=== PATIENT | male | born 1940 | race Caucasian/White ===

== ENCOUNTER → 2016-09-20 | Day surgery (SDC) | payer OTHER ==
[~2016-09-20] MED LIST: AMIT25TA20 PO; ASPI81TA82 PO; ATEN-100 PO; BACITRACIN TOP OINT 15 GM TUBE ONE; BUPIVACAINE/EPINEPHRINE 0.5% PF 10 ML VIAL ONE; DIGO0.25 PO; GLUC1000 PO; INSU100V2 SQ; INSU100V3 SQ; LACTATED RINGER'S 1000 ML INJ 1,000 ML ONE; LISI-589 PO; MIDAZOLAM HCL 2 MG/2 ML VIAL ONE; POTA-243 PO; PROPOFOL 200 MG/20 ML AMP IV ONE; SIMV20 PO; TAB-TAB PO; ceFAZolin 2 GM PREMIX 50 ML ONE
--- NOTE | 2016-09-20 18:03 | TN ---
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 PROCEDURE His excision of in transit metastasis left upper extremity with intermediate closure wound 5 cm x 2.5 cm ANESTHESIA TIVA and local anesthetic ATTENDING SURGEON: Pasquale. NUTRITION WORKER: Staff BLOOD LOSS Less than 10 cc COMPLICATIONS None FINDINGS Pigmented nodule in the subcutaneous tissue grossly completely excised of all margins. INDICATIONS FOR PROCEDURE The patient is a 76-year-old male with a history of left upper extremity melanoma status post wide excision of skin graft by Dr. Danie Diaz. The patient was followed up by his husker operator and was noted to have a pigmented nodular type lesion in the left upper extremity near his previous excision. The patient was referred to myself and found to be approximately 6-7 cm away from the patient's original, primary melanoma. The patient and biopsy is consistent with in transit disease. A PET scan was negative for any metastatic disease. I discussed with the patient about the potential treatment options which include wide excision. Primarily as well as other adjuvant therapy, as well as regional therapy such as a limb infusion. He was elected to undergo excision of this lesion at this time followed by close followup. PROCEDURE: Informed consent was obtained, the patient was taken to the operating room and placed in the supine position, placed under TIVA sedation. The patient's left upper extremity is prepped and draped in sterile fashion. Time-out was performed. Local anesthetic 0.25% Marcaine was instilled in the area of the planned excision in the left forearm round, marked nodule. We excised this with a 5 cm x 2.5 cm 15 blade scalpel at the skin. The bovie electrocautery this used to dissect the subcutaneous tissue and resect this off of the deep fascia of the extensor compartment. This was marked with stitch proximal sent for permanent processing. Grossly all normal tissue 3.5 degrees around the nodule. We then got excellent hemostasis with Bovie electrocautery. We placed deep dermal 3-0 Vicryl sutures followed for Monocryl and Steri-Strips. Placed a pressure dressing an a Max wrap as the patient being perioperative from anticoagulation. The patient at this discontinued from the anesthesia and taken to PACU in stable condition. The patient tolerated procedure well. No apparent complications. All counts were correct. I was present and scrubbed throughout the entire procedure. MD TRICE Flaherty/hung /2:54 PM /5:58 PM
== END | disposition home or self-care (01) ==
LOC: ESDC 12:28
PROVIDERS: ATTEND Surgery
DX: C43.62 Malignant melanoma of left upper limb, including shoulder (principal); E11.9 Type 2 diabetes mellitus without complications; Z79.4 Long term (current) use of insulin
CPT/HCPCS: 00400; 11606; 12032; 82948; 88305; 88341; 88342; J0690; J2250; J3010; J7120

== ENCOUNTER 2016-10-01 12:13 | Emergency (ER) | payer OTHER ==
[~2016-10-01] VITALS: Ht 188 cm; Wt 100.0 kg
[~2016-10-01 12:13] MED LIST changes: -BACITRACIN TOP OINT 15 GM TUBE ONE; -BUPIVACAINE/EPINEPHRINE 0.5% PF 10 ML VIAL ONE; -LACTATED RINGER'S 1000 ML INJ 1,000 ML ONE; -MIDAZOLAM HCL 2 MG/2 ML VIAL ONE; -PROPOFOL 200 MG/20 ML AMP IV ONE; -ceFAZolin 2 GM PREMIX 50 ML ONE
[2016-10-01 12:14] VITALS: BP 125/60; PULSE 80; RESP 16; TEMP 97.9; O2SAT 98
[2016-10-01] MEDS ORDERED: ZOCO20TA PO (13:04)
[2016-10-01] MEDS ORDERED: GABA300C5 PO (13:04)
[2016-10-01] MEDS ORDERED: CYMB30CA PO (13:04)
[2016-10-01] MEDS ORDERED: MULTTAB67 PO (13:04)
[2016-10-01] MEDS ORDERED: XARE15TA PO (13:04)
[2016-10-01] MEDS ORDERED: INSU100V3 SQ (13:04)
[2016-10-01] MEDS ORDERED: AMIT25TA9 PO (13:04)
[2016-10-01] MEDS ORDERED: ATEN1TAB73 PO (13:04)
[2016-10-01] MEDS ORDERED: METF1000 PO (13:04)
--- NOTE | 2016-10-01 14:03 | PD ---
HPI Chief Complaint: ENT Complaint Time Seen by Provider: 13:22 Travel History International Travel<30 days: No Contact w/Intl Traveler<30days: No Traveled to known affect area: No History of Present Illness HPI Patient is a 76-year-old male currently on Xarrelto, presents to ER with c/o of nose bleed. Patient reports that he picked his left nares last night and began to have a nose bleed. Reports that he has placed multiple cotton balls into his left nares without any resolution of bleeding. Reports that he did try some applying pressure to his left nares with no relief of symptoms. Patient reports that his nose bled all night, reports that he decided to finally come to the emergency for evaluation and his nose stopped bleeding. Patient reports that bleeding stopped around noontime today. Patient denies any lightheadedness or dizziness at this time. Patient with no chest pain or shortness of breath PFSH Past Medical History Atrial Fibrillation: Yes Heart Rhythm Problems: Yes (SVT/ATRIAL FIB X 1 EPISODE) Cardiovascular Problems: Yes (MVR ) High Cholesterol: Yes Diabetes: Yes Patient Takes Glucophage: No Diminished Hearing: No Hypertension: Yes Kidney Stones: Yes Neurologic: Yes (DIABETIC NEUROPATHY) Tetanus Vaccination: Never Vaccinated Influenza Vaccination: No Past Surgical History Cardiac Surgery: Yes (MVR ) Cholecystectomy: Yes (1981) Eye Surgery: Yes (BILATERAL LASIK) Neurologic Surgery: Yes (LAMINECTOMY X2) Other Surgery: Yes (LEFT THUMB/INFECTION/HAND SURGERY) Social History Alcohol Use: No Tobacco Use: No Substance Use: No Allergies-Medications (Allergen,Severity, Reaction): Coded Allergies: Tetanus Toxoid (Verified Allergy, Severe, SEVERE SWELLING, TOLD NEVER TO HAVE INJECTION AGAIN, 10/01/16) Uncoded Allergies: rubber (Allergy, Severe, unknown, 05/29/12) Reported Meds & Prescriptions Reported Meds & Active Scripts Active Reported Xarelto (Rivaroxaban) 15 Mg Tab 15 Mg PO DAILY Cymbalta DR (Duloxetine HCl) 30 Mg Capdr 30 Mg PO DAILY Gabapentin 300 Mg Cap 300 Mg PO TID Zocor (Simvastatin) 20 Mg Tab 20 Mg PO HS Multiple Vitamin 1 Tab 1 Tab PO DAILY Metformin (Metformin HCl) 1,000 Mg Tab 1,000 Mg PO BID With meals Humulin N Inj (Insulin Human NPH) 1,000 Unit/10 Ml Vial SQ BID PER SLIDING SCALE Tenormin (Atenolol) 25 Mg Tab 25 Mg PO DAILY Amitriptyline (Amitriptyline HCl) 25 Mg Tab 25 Mg PO HS Review of Systems General / Constitutional: No: Fever Eyes: No: Visual changes HENT: Positive: Nosebleed, No: Headaches Cardiovascular: No: Chest Pain or Discomfort Respiratory: No: Shortness of Breath Gastrointestinal: No: Abdominal Pain Genitourinary: No: Dysuria Musculoskeletal: No: Pain Skin: No Rash Neurologic: No: Weakness Psychiatric: No: Depression Endocrine: No: Polydipsia Hematologic/Lymphatic: No: Easy Bruising Physical Exam Narrative GENERAL: NAD, Nontoxic SKIN: Focused skin assessment warm/dry. HEAD: Atraumatic. Normocephalic. EYES: Pupils equal and round. No scleral icterus. No injection or drainage. ENT: No active nasal bleeding or discharge. Mucous membranes pink and moist. Patient with dried blood to left nares with no active bleeding CARDIOVASCULAR: Regular rate and rhythm. No murmur appreciated. RESPIRATORY: No accessory muscle use. Clear to auscultation. Breath sounds equal bilaterally. GASTROINTESTINAL: Abdomen soft, non-tender, nondistended. Hepatic and splenic margins not palpable. MUSCULOSKELETAL: No obvious deformities. No clubbing. No cyanosis. No edema. NEUROLOGICAL: Awake and alert. No obvious cranial nerve deficits. Motor grossly within normal limits. Normal speech. Data Data Last Documented VS Vital Signs Date Time Temp Pulse Resp B/P Pulse Ox O2 Delivery O2 Flow Rate FiO2 10/01/16 12:14 97.9 80 16 125/60 98 Orders Complete Blood Count With Diff (10/01/16 13:40) Prothrombin Time / Inr (Pt) (10/01/16 13:40) Act Partial Throm Time (Ptt) (10/01/16 13:40) Labs Laboratory Tests Test 10/01/16 14:00 White Blood Count 6.5 TH/MM3 Red Blood Count 3.40 MIL/MM3 Hemoglobin 10.5 GM/DL Hematocrit 31.4 % Mean Corpuscular Volume 92.3 FL Mean Corpuscular Hemoglobin 31.0 PG Mean Corpuscular Hemoglobin 33.6 % Concent Red Cell Distribution Width 13.7 % Platelet Count 147 TH/MM3 Mean Platelet Volume 7.5 FL Neutrophils (%) (Auto) 67.6 % Lymphocytes (%) (Auto) 24.2 % Monocytes (%) (Auto) 5.6 % Eosinophils (%) (Auto) 2.2 % Basophils (%) (Auto) 0.4 % Neutrophils # (Auto) 4.4 TH/MM3 Lymphocytes # (Auto) 1.6 TH/MM3 Monocytes # (Auto) 0.4 TH/MM3 Eosinophils # (Auto) 0.1 TH/MM3 Basophils # (Auto) 0.0 TH/MM3 CBC Comment DIFF FINAL Differential Comment Prothrombin Time 11.0 SEC Prothromb Time International 1.0 RATIO Ratio Activated Partial 26.1 SEC Thromboplast Time MDM Medical Decision Making Medical Screen Exam Complete: Yes Emergency Medical Condition: Yes Interpretation(s) Vital Signs Date Time Temp Pulse Resp B/P Pulse Ox O2 Delivery O2 Flow Rate FiO2 10/01/16 12:14 97.9 80 16 125/60 98 Differential Diagnosis Differential includes epistasis, hypercoagulable state, anemia Narrative Course 76-year-old male who presents to emergency with complaints of nosebleed. Patient reports that nosebleed began after he picked his left nares yesterday, reports that his nose stopped bleeding today while in the emergency room. I did review with patient how to treat epistaxis at home as he was not applying direct pressure. Patient with blood clot to left nares, will check cbc and coags. CBC & BMP Diagram 10/01/16 14:00 Hemoglobin 10.5, INR 1.0, patient with cessation of nasal bleeding since noon today. No bleeding in ER from nares. Patient has been educated on how to apply pressure to nose if he has recurrent epistasis. Understands that he should return to the emergency room immediately should he have recurrent epistasis which persist. Diagnosis Primary Impression: Epistaxis Patient Instructions: General Instructions Additional Instructions: Please provide patient with a copy of his lab work at discharge Return to ER as needed or if symptoms return and persist Please follow up with your primary care doctor Disposition: 01 DISCHARGE HOME Condition: Stable MetcalfAnmu DO Oct 01, 2016 14:03
[2016-10-01 14:19] LABS: AUTOMATED NEUTROPHIL # 4.4 TH/MM3 (1.8-7.7); BASOPHIL % 0.4 % (0.0-2.0); EOSINOPHIL # 0.1 TH/MM3 (0-0.4); EOSINOPHIL % 2.2 % (0.0-4.0); HEMATOCRIT 31.4 % (39.0-51.0); HEMO FLAGS DIFF FINAL; LYMPH % 24.2 % (9.0-44.0); LYMPHOCYTE # 1.6 TH/MM3 (1.0-4.8); MEAN CELL VOLUME 92.3 FL (80.0-100.0); MEAN CORPUSCULAR HGB CONC 33.6 % (32.0-36.0); MONO % 5.6 % (0.0-8.0); NEUT % 67.6 % (16.0-70.0); PLATELET COUNT 147 TH/MM3 (150-450); RED CELL DISTRIBUTION WIDTH 13.7 % (11.6-17.2); WHITE BLOOD COUNT 6.5 TH/MM3 (4.0-11.0)
[2016-10-01 14:29] LABS: APTT (PATIENT) 26.1 SEC (24.3-30.1)
== END 2016-10-01 15:33 | disposition home or self-care (01) ==
LOC: NEPD 12:13
DX: R04.0 Epistaxis (principal); I48.91 Unspecified atrial fibrillation; E78.00 Pure hypercholesterolemia, unspecified; I10 Essential (primary) hypertension; E11.40 Type 2 diabetes mellitus with diabetic neuropathy, unspecified; Z87.442 Personal history of urinary calculi; Z79.01 Long term (current) use of anticoagulants
CPT/HCPCS: 85025; 85610; 85730; 99283

== ENCOUNTER 2017-01-20 12:49 | Inpatient (IN) | payer OTHER, MEDICARE ==
[2017-01-20] VITALS (10 sets, daily range): BP systolic 103–138; BP diastolic 55–76; PULSE 71–90; RESP 18–19; TEMP 97.2–99.1; O2SAT 95–100
[~2017-01-20] VITALS: Ht 188 cm; Wt 104.6 kg
[~2017-01-20 12:49] MED LIST changes: -AMIT25TA20 PO; +AMIT25TA9 PO; -ASPI81TA82 PO; -ATEN-100 PO; +ATEN1TAB73 PO; +CYMB30CA PO; -DIGO0.25 PO; +GABA300C5 PO; -GLUC1000 PO; -INSU100V2 SQ; -LISI-589 PO; +METF1000 PO; +MULTTAB67 PO; -POTA-243 PO; -SIMV20 PO; -TAB-TAB PO; +XARE15TA PO; +ZOCO20TA PO
[2017-01-20] MEDS ORDERED: SODIUM CHLORIDE 0.9% FLUSH 10 ML FLUSH IVF PRN (13:15)
[2017-01-20] MEDS ORDERED: HUMULIN R SQ (13:19)
[2017-01-20] MEDS ORDERED: FERR325C PO (13:19)
[2017-01-20] MEDS ORDERED: METO25TA3 PO (13:19)
[2017-01-20] MEDS ORDERED: ASCO100037 (13:19)
--- NOTE | 2017-01-20 13:19 | PD ---
HPI Chief Complaint: Cardiac Complaint Time Seen by Provider: 12:56 Travel History International Travel<30 days: No Contact w/Intl Traveler<30days: No History of Present Illness HPI 76-year-old male with PMH of blindness, DM T2, HTN, HLD, A. fib, MRSA, MVR with porcine valve, CA, on Xarelto presents to the ED for evaluation of 1 week history of worsening dyspnea on exertion, palpitations, dizziness. The patient denies headache, vision changes, chest pain, abdominal pain, nausea, vomiting, melena, hematochezia, dysuria, hematuria. He saw his primary care, Dr. Murphy , on Monday. He was told on Monday that he is anemic and ordered to begin taking iron supplements. He has been doing this with no improvement of symptoms. He states that he had panendoscopy "too many years ago" that was normal. He is followed by Dr. Matthews, cardiology. PFSH Past Medical History Atrial Fibrillation: Yes Heart Rhythm Problems: Yes (SVT/ATRIAL FIB X 1 EPISODE) Cardiovascular Problems: Yes (MVR ) High Cholesterol: Yes Diabetes: Yes Diminished Hearing: No Hypertension: Yes Kidney Stones: Yes Neurologic: Yes (DIABETIC NEUROPATHY) Past Surgical History Cardiac Surgery: Yes (MVR ) Cholecystectomy: Yes (1981) Eye Surgery: Yes (BILATERAL LASIK) Neurologic Surgery: Yes (LAMINECTOMY X2) Other Surgery: Yes (LEFT THUMB/INFECTION/HAND SURGERY) Social History Alcohol Use: No Tobacco Use: No Substance Use: No Allergies-Medications (Allergen,Severity, Reaction): Coded Allergies: tetanus toxoid, adsorbed (Unverified Allergy, Severe, SEVERE SWELLING, TOLD NEVER TO HAVE INJECTION AGAIN, 11/08/16) Uncoded Allergies: rubber (Allergy, Severe, unknown, 05/29/12) Reported Meds & Prescriptions Reported Meds & Active Scripts Active Reported Vitamin C (Ascorbic Acid) 1,000 Mg Tab.chew Iron (Ferrous Sulfate) 325 Mg Cap 325 Mg PO TIDPC [Humulin R ] SQ DIRECTED Metoprolol Tartrate 25 Mg Tab 25 Mg PO DAILY Xarelto (Rivaroxaban) 15 Mg Tab 15 Mg PO DAILY Cymbalta DR (Duloxetine HCl) 30 Mg Capdr 30 Mg PO DAILY Gabapentin 300 Mg Cap 300 Mg PO TID Zocor (Simvastatin) 20 Mg Tab 20 Mg PO HS Multiple Vitamin 1 Tab 1 Tab PO DAILY Humulin N Inj (Insulin Human NPH) 1,000 Unit/10 Ml Vial SQ BID PER SLIDING SCALE Amitriptyline (Amitriptyline HCl) 25 Mg Tab 25 Mg PO HS Review of Systems Except as stated in HPI: all other systems reviewed are Neg Physical Exam Narrative GENERAL: Well-nourished, well-developed pleasant white male in no acute distress. SKIN: Focused skin assessment warm/dry. Pale, good turgor HEAD: Normocephalic. EYES: No scleral icterus. No injection or drainage. NECK: Supple, trachea midline. No JVD or lymphadenopathy. CARDIOVASCULAR: Regular rate and rhythm without murmurs, gallops, or rubs. 2+ DP and radial pulses bilaterally RESPIRATORY: Breath sounds clear and equal bilaterally. No accessory muscle use. GASTROINTESTINAL: Abdomen soft, non-tender, nondistended. Active bowel sounds. RECTAL EXAM: No masses or tenderness, stool is brown. Guaiac positive. MUSCULOSKELETAL: No cyanosis, or edema. Ankle braces bilaterally. BACK: Nontender without obvious deformity. No CVA tenderness. Data Data Last Documented VS Vital Signs Date Time Temp Pulse Resp B/P (MAP) Pulse Ox O2 Delivery O2 Flow Rate FiO2 01/20/17 13:11 (83) Room Air 01/20/17 13:01 80 17 98 01/20/17 12:50 99.1 Orders Orders Complete Blood Count With Diff (01/20/17 13:08) Comprehensive Metabolic Panel (01/20/17 13:08) B-Type Natriuretic Peptide (01/20/17 13:08) Act Partial Throm Time (Ptt) (01/20/17 13:08) Prothrombin Time / Inr (Pt) (01/20/17 13:08) Magnesium (Mg) (01/20/17 13:08) Ckmb (Isoenzyme) Profile (01/20/17 13:08) Troponin I (01/20/17 13:08) Urinalysis - C+S If Indicated (01/20/17 13:08) Iv Access Insert/Monitor (01/20/17 13:08) Electrocardiogram (01/20/17 13:08) Ecg Monitoring (01/20/17 13:08) Oximetry (01/20/17 13:08) Chest, Single Ap (01/20/17 13:08) Sodium Chloride 0.9% Flush (Ns Flush) (01/20/17 13:15) Red Blood Cells (Rbc) (01/20/17 13:40) Blood Product Administration (01/20/17 13:40) Sodium Chlor 0.9% 250 Ml Inj (Ns 250 Ml (01/20/17 13:45) Type And Screen (01/20/17 13:40) Consult Gastroenterology (01/20/17 ) Pantoprazole Inj (Protonix Inj) (01/20/17 14:30) Admit Order (Ed Use Only) (01/20/17 14:29) Labs Laboratory Tests Test 01/20/17 13:15 01/20/17 13:30 White Blood Count 6.1 TH/MM3 Red Blood Count 1.92 MIL/MM3 Hemoglobin 5.9 GM/DL Hematocrit 18.1 % Mean Corpuscular Volume 94.4 FL Mean Corpuscular Hemoglobin 30.8 PG Mean Corpuscular Hemoglobin Concent 32.6 % Red Cell Distribution Width 16.1 % Platelet Count 185 TH/MM3 Mean Platelet Volume 7.7 FL Neutrophils (%) (Auto) 69.6 % Lymphocytes (%) (Auto) 19.7 % Monocytes (%) (Auto) 7.5 % Eosinophils (%) (Auto) 2.6 % Basophils (%) (Auto) 0.6 % Neutrophils # (Auto) 4.2 TH/MM3 Lymphocytes # (Auto) 1.2 TH/MM3 Monocytes # (Auto) 0.5 TH/MM3 Eosinophils # (Auto) 0.2 TH/MM3 Basophils # (Auto) 0.0 TH/MM3 CBC Comment DIFF FINAL Differential Comment Prothrombin Time 12.3 SEC Prothromb Time International Ratio 1.1 RATIO Activated Partial Thromboplast Time 33.2 SEC Blood Urea Nitrogen 19 MG/DL Creatinine 1.33 MG/DL Random Glucose 290 MG/DL Total Protein 7.1 GM/DL Albumin 3.3 GM/DL Calcium Level 7.8 MG/DL Magnesium Level 1.7 MG/DL Alkaline Phosphatase 82 U/L Aspartate Amino Transf (AST/SGOT) 15 U/L Alanine Aminotransferase (ALT/SGPT) 16 U/L Total Bilirubin 0.5 MG/DL Sodium Level 135 MEQ/L Potassium Level 4.3 MEQ/L Chloride Level 106 MEQ/L Carbon Dioxide Level 21.5 MEQ/L Anion Gap 8 MEQ/L Estimat Glomerular Filtration Rate 52 ML/MIN Total Creatine Kinase 79 U/L Troponin I LESS THAN 0.02 NG/ML B-Type Natriuretic Peptide 414 PG/ML Urine Color YELLOW Urine Turbidity CLEAR Urine pH 5.5 Urine Specific [place] 1.015 Urine Protein TRACE mg/dL Urine Glucose (UA) 300 mg/dL Urine Ketones NEG mg/dL Urine Occult Blood NEG Urine Nitrite NEG Urine Bilirubin NEG Urine Urobilinogen LESS THAN 2.0 MG/DL Urine Leukocyte Esterase NEG Urine RBC 1 /hpf Urine WBC LESS THAN 1 /hpf Urine Hyaline Casts 10 /lpf Urine Mucus FEW /lpf Microscopic Urinalysis Comment CULT NOT INDICATED MDM Medical Decision Making Medical Screen Exam Complete: Yes Emergency Medical Condition: Yes Differential Diagnosis CHF versus ACS versus anemia versus metabolic arrangement versus GI bleed versus other Narrative Course 76-year-old male with PMH of blindness, DM T2, HTN, HLD, A. fib, MRSA, MVR with porcine valve, [place], on Xarelto presents to the ED for evaluation of 1 week history of worsening dyspnea on exertion, palpitations, dizziness. He was seen by his PCP 4 days ago and told yesterday that he is anemic and ordered to begin taking iron supplements. He's been doing this with no improvement of symptoms. He states that he had panendoscopy many years ago that was normal. He is followed by Dr. Matthews, cardiology. Vitals reviewed. The patient is pale appearing and guaiac positive on rectal exam but exam otherwise unremarkable. IV was established. EKG: rate 81, sinus rhythm. MN interval 132, QRS 92, QTC 419 ms. Borderline LAD. Incomplete RBBB, no ST changes. Reviewed by Dr. Gomez. CXR: No acute cardio pulmonary disease per radiology read. Cardiac enzymes negative 1. Hemoglobin 5.9. Hematocrit 18.1. INR 1.1. BUN 19, creatinine 1.33. Glucose 290. BNP 414. No culture indicated of the UA. 2 units PRBC ordered pending type and cross. The patient is anemic, symptomatic , GI bleed. He'll be admitted to the medicine service with GI consult. Family is agreeable to this plan. GI consult placed. I spoke with Dr. Liang who agrees to The patient to the medicine service. Please see medicine is for disposition. [facility] Point of Care Internal Pos. & Neg. Controls: Passed Fecal Specimen Occult Blood: Positive Vanesa Carr Jan 20, 2017 13:18
[2017-01-20 13:31] LABS: AUTOMATED NEUTROPHIL # 4.2 TH/MM3 (1.8-7.7); BASOPHIL % 0.6 % (0.0-2.0); EOSINOPHIL # 0.2 TH/MM3 (0-0.4); EOSINOPHIL % 2.6 % (0.0-4.0); LYMPH % 19.7 % (9.0-44.0); LYMPHOCYTE # 1.2 TH/MM3 (1.0-4.8); MEAN CELL VOLUME 94.4 FL (80.0-100.0); MEAN CORPUSCULAR HEMOGLOBIN 30.8 PG (27.0-34.0); MEAN CORPUSCULAR HGB CONC 32.6 % (32.0-36.0); MEAN PLATELET VOLUME 7.7 FL (7.0-11.0); MONO % 7.5 % (0.0-8.0); MONOCYTE # 0.5 TH/MM3 (0-0.9); NEUT % 69.6 % (16.0-70.0); PLATELET COUNT 185 TH/MM3 (150-450); RED BLOOD COUNT 1.92 MIL/MM3 (4.50-5.90); RED CELL DISTRIBUTION WIDTH 16.1 % (11.6-17.2); WHITE BLOOD COUNT 6.1 TH/MM3 (4.0-11.0)
[2017-01-20 13:37] LABS: HEMATOCRIT 18.1 % (39.0-51.0); HEMOGLOBIN 5.9 GM/DL (13.0-17.0)
[2017-01-20 13:38] LABS: INTERNATIONAL NORMALIZED RATIO 1.1 RATIO; PROTHROMBIN TIME - PATIENT 12.3 SEC (9.8-11.6)
[2017-01-20] MEDS ORDERED: SODIUM CHLOR 0.9% 250 ML INJ 250 ML IV ONE (13:45)
[2017-01-20 13:51] LABS: ALBUMIN 3.3 GM/DL (3.4-5.0); AST (GOT) 15 U/L (15-37); BICARBONATE 21.5 MEQ/L (21.0-32.0); BLOOD UREA NITROGEN 19 MG/DL (7-18); CALCIUM 7.8 MG/DL (8.5-10.1); CHLORIDE 106 MEQ/L (98-107); CREATININE 1.33 MG/DL (0.60-1.30); GLOMERULAR FILTRATION RATE 52 ML/MIN (>89); GLUCOSE,RANDOM 290 MG/DL (74-106); MAGNESIUM 1.7 MG/DL (1.5-2.5); SODIUM (NA) 135 MEQ/L (136-145)
[2017-01-20 13:52] LABS: BILIRUBIN, URINE NEG (NEG); BLOOD, URINE NEG (NEG); GLUCOSE,URINE 300 mg/dL (NEG); HYALINE CAST, URINE 10 /lpf (RARE); KETONE, URINE NEG (NEG); MUCUS URINE FEW /lpf (OCC); NITRITE,URINE NEG (NEG); PH, URINE 5.5 (5.0-8.5); URINE COLOR YELLOW (YELLW/STRAW); URINE LEUKOCYTE ESTERASE NEG (NEG)
[2017-01-20 13:57] LABS: ALKALINE PHOSPHATASE 82 U/L (45-117); ALT (GPT) 16 U/L (12-78); TOTAL BILIRUBIN ADULT 0.5 MG/DL (0.2-1.0); TOTAL PROTEIN 7.1 GM/DL (6.4-8.2); TROPONIN I LESS THAN 0.02 NG/ML (0.02-0.05)
--- NOTE | 2017-01-20 14:04 | RADRPT ---
EXAM DATE/TIME: 01/20/2017 13:54 [facility] COMPARISON: CHEST SINGLE AP, March 18, 2015, 18:28. INDICATIONS : Chest pain and short of breath. MEDICAL HISTORY : Hypertension. hx of MRSA, carotid stenosis, Diabetes II SURGICAL HISTORY : Mitral valve replaced ENCOUNTER: Initial ACUITY: 1 week PAIN SCORE: Non-responsive. LOCATION: Bilateral chest FINDINGS: Median sternotomy wires. Lungs are clear. Cardiome saw contours are within normal limits. Bony thorax is intact. CONCLUSION: 1. No acute cardiopulmonary disease. Ted Clemens MD on January 20, 2017 at 14:01 Board Certified Radiologist. This report was verified electronically.
[2017-01-20] MEDS ORDERED: PANTOPRAZOLE SODIUM 40 MG VIAL IV PUSH ONE (14:30)
[2017-01-20] MEDS ORDERED: PANTOPRAZOLE INJ 80 MG in SODIUM CHLORIDE 0.9% INJ 100 ML IV SCH (14:39)
[2017-01-20] MEDS ORDERED: GLUCAGON 1 MG/ML VIAL OTHER PRN (14:45)
[2017-01-20] MEDS ORDERED: DEXTROSE 50% IN WATER 50 ML VIAL(D50) IV PUSH PRN (14:45)
[2017-01-20] MEDS ORDERED: SODIUM CHLOR 0.9% 1000 ML INJ 1,000 ML IV SCH (14:47)
[2017-01-20] MEDS ORDERED: LACTULOSE SYRUP 20 GM/30 ML CUP PO PRN (15:00)
[2017-01-20] MEDS ORDERED: oxyCODONE/ACETAMINOPHEN 5 MG/325 MG TAB PO PRN (15:00)
[2017-01-20] MEDS ORDERED: BISACODYL 10 MG SUPP RECTAL PRN (15:00)
[2017-01-20] MEDS ORDERED: SENNOSIDES 8.6 MG TAB PO PRN (15:00)
[2017-01-20] MEDS ORDERED: diphenhydrAMINE HCL 25 MG CAP PO PRN (15:00)
[2017-01-20] MEDS ORDERED: ACETAMINOPHEN 325 MG TAB PO PRN ×3 (15:00)
[2017-01-20] MEDS ORDERED: NALOXONE HCL 0.4 MG/ML AMP IV PUSH PRN (15:00)
[2017-01-20] MEDS ORDERED: ONDANSETRON HCL 4 MG/2 ML VIAL IV PUSH PRN (15:00)
[2017-01-20] MEDS ORDERED: PROCHLORPERAZINE 25 MG SUPP RECTAL PRN (15:00)
[2017-01-20] MEDS ORDERED: SODIUM CHLORIDE 0.9% FLUSH 10 ML FLUSH IV FLUSH PRN ×2 (15:00)
[2017-01-20] MEDS ORDERED: MORPHINE SULFATE 4 MG/ML INJ IV PUSH PRN ×2 (15:00)
[2017-01-20] MEDS ORDERED: oxyCODONE/ACETAMINOPHEN 10 MG/325 MG TAB PO PRN (15:00)
[2017-01-20] MEDS ORDERED: FUROSEMIDE 20 MG/2 ML VIAL IV PUSH ONE (15:00)
[2017-01-20] MEDS ORDERED: MAGNESIUM HYDROXIDE SUSP 30 ML CUP PO PRN (15:00)
--- NOTE | 2017-01-20 15:14 | HHI.HP ---
[facility] Service [facility] Primary Care Physician Non-Staff Admission Diagnosis symptomatic anemia, GI bleed Diagnoses: (1) Symptomatic anemia Diagnosis: Principal (2) Diabetes mellitus type 2 in obese Diagnosis: Secondary (3) Hypertension Diagnosis: Secondary (4) Hyperlipidemia Diagnosis: Secondary (5) Atrial fibrillation Diagnosis: Secondary (6) MRSA (methicillin resistant Staphylococcus aureus) Diagnosis: Secondary (7) S/P MVR (mitral valve replacement) Diagnosis: Secondary (8) Chronic anticoagulation Diagnosis: Principal (9) History of MN (myocardial infarction) Diagnosis: Secondary (10) Gastrointestinal bleeding, upper Diagnosis: Principal Travel History International Travel<30 Days: No Contact w/Intl Traveler <30 Da: No Traveled to Known Affected Are: No History of Present Illness 76-year-old male with PMH of blindness, DM T2, HTN, HLD, A. fib, MRSA, MVR with porcine valve, MN, on Xarelto presents to the ED for evaluation of 1 week history of worsening dyspnea on exertion, palpitations, dizziness. The patient denies headache, vision changes, chest pain, abdominal pain, nausea, vomiting, melena, hematochezia, dysuria, hematuria. He saw his primary care, Dr. Murphy , on Monday. He was told on Monday that he is anemic and ordered to begin taking iron supplements. He has been doing this with no improvement of symptoms. He states that he had panendoscopy "too many years ago" that was normal. He is followed by Dr. Matthews, cardiology. Patient states his hemoglobin was approximately 9 earlier this week it is now 5.9 will be admitted and transfused and gastroenterology will be consult will place on Protonix twice a day as well as Sandostatin Review of Systems Constitutional: COMPLAINS OF: Fatigue, DENIES: Diaphoretic episodes, Fever, Weight gain, Weight loss, Chills, Dizziness, Change in appetite Endocrine: DENIES: Heat/cold intolerance, Polydipsia, Polyuria, Polyphagia Eyes: COMPLAINS OF: Vision loss, DENIES: Blurred vision, Diplopia, Eye inflammation, Eye pain Ears, nose, mouth, throat: DENIES: Tinnitus, Hearing loss, Vertigo, Nasal discharge Respiratory: DENIES: Apneas, Cough, Snoring, Wheezing Cardiovascular: DENIES: Chest pain, Palpitations, Syncope, Dyspnea on Exertion , PND Gastrointestinal: COMPLAINS OF: Abdominal pain, Black stools (heme positive stools), Bloody stools Musculoskeletal: DENIES: Joint pain, Muscle aches, Stiffness, Joint Swelling Integumentary: DENIES: Abnormal pigmentation, Nail changes, Pruritus Hematologic/lymphatic: DENIES: Bruising, Lymphadenopathy Immunologic/allergic: DENIES: Eczema, Urticaria Neurologic: COMPLAINS OF: Abnormal gait, Poor Balance, DENIES: Headache, Localized weakness, Paresthesias, Seizures, Speech Problems, Tremor Psychiatric: DENIES: Anxiety, Confusion, Mood changes, Depression, Hallucinations Past Family Social History Past Medical History Blindness Diabetes mellitus2 Hypertension Hyperlipidemia Atrial fibrillation MRSA by history Mitral valve replacement with porcine valve History of myocardial infarction and chronic Xarelto History of SVT atrial fibrillation History of kidney stones Diabetic neuropathy Past Surgical History History of mitral valve replacement with porcine valve Cholecystectomy Bilateral eye Lasix surgery History laminectomies 2 History of left thumb infection hand surgery Reported Medications Reported Meds & Active Scripts Active Reported Vitamin C (Ascorbic Acid) 1,000 Mg Tab.chew Iron (Ferrous Sulfate) 325 Mg Cap 325 Mg PO TIDPC [Humulin R ] SQ DIRECTED Metoprolol Tartrate 25 Mg Tab 25 Mg PO DAILY Xarelto (Rivaroxaban) 15 Mg Tab 15 Mg PO DAILY Cymbalta DR (Duloxetine HCl) 30 Mg Capdr 30 Mg PO DAILY Gabapentin 300 Mg Cap 300 Mg PO TID Zocor (Simvastatin) 20 Mg Tab 20 Mg PO HS Multiple Vitamin 1 Tab 1 Tab PO DAILY Humulin N Inj (Insulin Human NPH) 1,000 Unit/10 Ml Vial SQ BID PER SLIDING SCALE Amitriptyline (Amitriptyline HCl) 25 Mg Tab 25 Mg PO HS Allergies: Coded Allergies: tetanus toxoid, adsorbed (Unverified Allergy, Severe, SEVERE SWELLING, TOLD NEVER TO HAVE INJECTION AGAIN, 11/08/16) Uncoded Allergies: rubber (Allergy, Severe, unknown, 05/29/12) Active Ordered Medications Current Medications Sodium Chloride (NS Flush) 2 ml UNSCH PRN IVF FLUSH AFTER USING IV ACCESS; Start 01/20/17 at 13:15 Sodium Chloride 250 ml @ 15 mls/hr ONCE ONCE IV ; Start 01/20/17 at 13:45; Stop 01/21/17 at 06:24 Pantoprazole Sodium (Protonix Inj) 40 mg ONCE ONCE IV PUSH ; Start 01/20/17 at 14:30; Stop 01/20/17 at 14:31; Status DC Pantoprazole Sodium 80 mg/ Sodium Chloride 100 ml @ 10 mls/hr Q10H IV ; Start 01/20/17 at 14:39 Dextrose (D50w (Vial) Inj) 50 ml UNSCH PRN IV PUSH HYPOGLYCEMIA-SEE COMMENTS; Start 01/20/17 at 14:45; Status UNV Glucagon (Glucagon Inj) 1 mg UNSCH PRN OTHER HYPOGLYCEMIA-SEE COMMENTS; Start 01/20/17 at 14:45; Status UNV Insulin Aspart (NovoLOG SUPPLEMENTAL SCALE) 1 ACHS SLIDING SCALE SQ ; Start at 17:00; Stop 01/20/17 at 17:00; Status DC Amitriptyline HCl (Elavil) 25 mg HS PO ; Start 01/20/17 at 21:00; Status UNV Duloxetine HCl (Cymbalta Dr) 30 mg DAILY PO ; Start 01/21/17 at 09:00; Status UNV Gabapentin (Neurontin) 300 mg TID PO ; Start 01/20/17 at 18:00; Status UNV Metoprolol Tartrate (Lopressor) 25 mg DAILY PO ; Start 01/21/17 at 09:00; Status UNV Non-Formulary Medication 325 mg TIDPC PO ; Start 01/20/17 at 18:30; Status UNV Non-Formulary Medication 1 tab DAILY PO ; Start 01/21/17 at 09:00; Status UNV Non-Formulary Medication 20 mg HS PO ; Start 01/20/17 at 21:00; Status UNV Insulin Aspart (NovoLOG SUPPLEMENTAL SCALE) 1 ACHS SLIDING SCALE SQ ; Start at 17:00; Status UNV Sodium Chloride (NS Flush) 2 ml UNSCH PRN IV FLUSH FLUSH AFTER USING IV ACCESS ; Start 01/20/17 at 15:00; Status UNV Sodium Chloride (NS Flush) 2 ml BID IV FLUSH ; Start 01/20/17 at 21:00; Status UNV Sodium Chloride 1,000 ml @ 100 mls/hr Q10H IV ; Start 01/20/17 at 14:47; Status UNV Pantoprazole Sodium (Protonix Inj) 40 mg BID IV PUSH ; Start 01/20/17 at 21:00 ; Status UNV Octreotide Acetate 500 mcg/ Sodium Chloride 500 ml @ 25 mls/hr Q20H IV ; Start 01/20/17 at 15:47; Stop 01/25/17 at 15:46; Status UNV Ondansetron HCl (Zofran Inj) 4 mg Q6H PRN IV PUSH NAUSEA OR VOMITING; Start at 15:00; Status UNV Sodium Chloride (NS Flush) 2 ml UNSCH PRN IV FLUSH FLUSH AFTER USING IV ACCESS ; Start 01/20/17 at 15:00; Status UNV Sodium Chloride (NS Flush) 2 ml BID IV FLUSH ; Start 01/20/17 at 21:00; Status UNV Acetaminophen (Tylenol) 650 mg Q4H PRN PO TEMP > 100.4; Start 01/20/17 at 15: 00; Status UNV Prochlorperazine (Compazine Supp) 25 mg Q12H PRN VA NAUSEA OR VOMITING; Start 01/20/17 at 15:00; Status UNV Acetaminophen (Tylenol) 650 mg Q6H PRN PO PAIN SCALE 1 TO 2; Start 01/20/17 at 15:00; Status UNV Oxycodone/ Acetaminophen (Percocet 5-325 Mg) 1 tab Q6H PRN PO PAIN SCALE 3 TO 5; Start 01/20/17 at 15:00; Status UNV Oxycodone/ Acetaminophen (Percocet 10-325 Mg) 1 tab Q6H PRN PO PAIN SCALE 6 TO 10; Start 01/20/17 at 15:00; Status UNV Morphine Sulfate (Morphine Inj) 2 mg Q3H PRN IV PUSH Pain 3-5; if unable to take PO; Start 01/20/17 at 15:00; Status UNV Morphine Sulfate (Morphine Inj) 4 mg Q3H PRN IV PUSH Pain 6-10;if unable to take PO; Start 01/20/17 at 15:00; Status UNV Naloxone HCl (Narcan Inj) 0.4 mg UNSCH PRN IV PUSH SEE LABEL COMMENTS; Start 01/20/17 at 15:00; Status UNV Senna/Docusate Sodium (Maria Esther-Colace) 1 tab BID PO ; Start 01/20/17 at 21:00; Status UNV Magnesium Hydroxide (Milk Of Magnesia Liq) 30 ml Q12H PRN PO Mild constipation ; Start 01/20/17 at 15:00; Status UNV Sennosides (Senokot) 17.2 mg Q12H PRN PO Moderate constipation; Start at 15:00; Status UNV Bisacodyl (Dulcolax Supp) 10 mg DAILY PRN RECTAL SEVERE CONSITIPATION; Start 01/20/17 at 15:00; Status UNV Lactulose (Lactulose Liq) 30 ml DAILY PRN PO SEVERE CONSITIPATION; Start 01/20 at 15:00; Status UNV Family History Probable hypertension diabetes Social History Denies any tobacco alcohol or illicits Physical Exam Vital Signs Vital Signs Date Time Temp Pulse Resp B/P (MAP) Pulse Ox O2 Delivery O2 Flow Rate FiO2 01/20/17 13:11 (83) Room Air 01/20/17 13:01 80 17 98 Room Air 01/20/17 12:50 99.1 90 18 129/61 (83) 99 Room Air Physical Exam GENERAL: This is a well-nourished, well-developed patient, in no apparent distress. SKIN: No rashes, ecchymoses or lesions. Cool and dry. HEAD: Atraumatic. Normocephalic. No temporal or scalp tenderness. EYES: Pupils equal round and reactive. Extraocular motions intact. No scleral icterus. No injection or drainage. Is only able to see shadows ENT: Nose without bleeding, purulent drainage or septal hematoma. Throat without erythema, tonsillar hypertrophy or exudate. Uvula midline. Airway patent. Tongue is midline NECK: Trachea midline. No JVD or lymphadenopathy. Supple, nontender, no meningeal signs. CARDIOVASCULAR: IRRegular rate and rhythm without murmurs, gallops, or rubs. S1 and S2 no S3 or S4 RESPIRATORY: Clear to auscultation. Breath sounds equal bilaterally. No wheezes , rales, or rhonchi. GASTROINTESTINAL: Abdomen soft, non-tender, nondistended. No hepato-splenomegaly , or palpable masses. No guarding. Obese heme positive stools MUSCULOSKELETAL: Extremities without clubbing, cyanosis, or edema. No joint tenderness, effusion, or edema noted. No calf tenderness. Negative Homans sign bilaterally. Bilateral foot drop with braces in place NEUROLOGICAL: Awake and alert. Cranial nerves II through XII intact. Motor and sensory grossly within normal limits. 4 out of 5 muscle strength in all muscle groups. Normal speech. Insight and judgment is good mood and behaviors appropriate Laboratory Laboratory Tests Test 01/20/17 13:15 01/20/17 13:30 White Blood Count 6.1 Red Blood Count 1.92 Hemoglobin 5.9 Hematocrit 18.1 Mean Corpuscular Volume 94.4 Mean Corpuscular Hemoglobin 30.8 Mean Corpuscular Hemoglobin Concent 32.6 Red Cell Distribution Width 16.1 Platelet Count 185 Mean Platelet Volume 7.7 Neutrophils (%) (Auto) 69.6 Lymphocytes (%) (Auto) 19.7 Monocytes (%) (Auto) 7.5 Eosinophils (%) (Auto) 2.6 Basophils (%) (Auto) 0.6 Neutrophils # (Auto) 4.2 Lymphocytes # (Auto) 1.2 Monocytes # (Auto) 0.5 Eosinophils # (Auto) 0.2 Basophils # (Auto) 0.0 CBC Comment DIFF FINAL Differential Comment Prothrombin Time 12.3 Prothromb Time International Ratio 1.1 Activated Partial Thromboplast Time 33.2 Blood Urea Nitrogen 19 Creatinine 1.33 Random Glucose 290 Total Protein 7.1 Albumin 3.3 Calcium Level 7.8 Magnesium Level 1.7 Alkaline Phosphatase 82 Aspartate Amino Transf (AST/SGOT) 15 Alanine Aminotransferase (ALT/SGPT) 16 Total Bilirubin 0.5 Sodium Level 135 Potassium Level 4.3 Chloride Level 106 Carbon Dioxide Level 21.5 Anion Gap 8 Estimat Glomerular Filtration Rate 52 Total Creatine Kinase 79 Troponin I LESS THAN 0.02 B-Type Natriuretic Peptide 414 Urine Color YELLOW Urine Turbidity CLEAR Urine pH 5.5 Urine Specific [place] 1.015 Urine Protein TRACE Urine Glucose (UA) 300 Urine Ketones NEG Urine Occult Blood NEG Urine Nitrite NEG Urine Bilirubin NEG Urine Urobilinogen LESS THAN 2.0 Urine Leukocyte Esterase NEG Urine RBC 1 Urine WBC LESS THAN 1 Urine Hyaline Casts 10 Urine Mucus FEW Microscopic Urinalysis Comment CULT NOT INDICATED Result Diagram: 01/20/17 1315 01/20/17 1315 Imaging Last Impressions Chest X-Ray 01/20/17 1308 Signed Impressions: Service Date/Time: Friday, January 20, 2017 13:54 - CONCLUSION: 1. No acute cardiopulmonary disease. MD Sonia Lenz VTE Risk Assessment Caprini VTE Risk Assessment: Mod/High Risk (score >= 2) Caprini Risk Assessment Model Point Value = 1 Point Value = 2 Point Value = 3 Point Value = 5 Age 41-60 Minor surgery BMI > 25 kg/m2 Swollen legs Varicose veins or History of unexplained or recurrent spontaneous Oral contraceptives or hormone replacement Sepsis (< 1 month) Serious lung disease, including pneumonia (< 1 month) Abnormal pulmonary function Acute myocardial infarction Congestive heart failure (< 1 month) History of inflammatory bowel disease Medical patient at bed rest Age 61-74 Arthroscopic surgery Major open surgery (> 45 min) Laparoscopic surgery (> 45 min) Malignancy Confined to bed (> 72 hours) Immobilizing plaster cast Central venous access Age >= 75 History of VTE Family history of VTE Factor V Leiden Prothrombin [id number] Lupus anticoagulant Anticardiolipin antibodies Elevated serum homocysteine Heparin-induced thrombocytopenia Other congenital or acquired thrombophilia Stroke (< 1 month) Elective arthroplasty Hip, pelvis, or leg fracture Acute spinal cord injury (< 1 month) Prophylaxis Regimen Total Risk Factor Score Risk Level Prophylaxis Regimen 0-1 Low Early ambulation 2 Moderate Order ONE of the following: *Sequential Compression Device (SCD) *Heparin 5000 units SQ BID 3-4 Higher Order ONE of the following medications: *Heparin 5000 units SQ TID *Enoxaparin/Lovenox 40 mg SQ daily (WT < 150 kg, CrCl > 30 mL/min) *Enoxaparin/Lovenox 30 mg SQ daily (WT < 150 kg, CrCl > 10-29 mL/min) *Enoxaparin/Lovenox 30 mg SQ BID (WT < 150 kg, CrCl > 30 mL/min) AND/OR *Sequential Compression Device (SCD) 5 or more Highest Order ONE of the following medications: *Heparin 5000 units SQ TID (Preferred with Epidurals) *Enoxaparin/Lovenox 40 mg SQ daily (WT < 150 kg, CrCl > 30 mL/min) *Enoxaparin/Lovenox 30 mg SQ daily (WT < 150 kg, CrCl > 10-29 mL/min) *Enoxaparin/Lovenox 30 mg SQ BID (WT < 150 kg, CrCl > 30 mL/min) AND *Sequential Compression Device (SCD) Assessment and Plan Problem List: (1) S/P MVR (mitral valve replacement) ICD Code: Z95.2 - Presence of prosthetic heart valve (2) Gastrointestinal bleeding, upper ICD Code: K92.2 - Gastrointestinal hemorrhage, unspecified (3) Symptomatic anemia ICD Code: D64.9 - Anemia, unspecified (4) History of MN (myocardial infarction) ICD Code: I25.2 - Old myocardial infarction (5) Diabetes mellitus type 2 in obese ICD Code: E11.69 - Type 2 diabetes mellitus with other specified complication; E66.9 - Obesity, unspecified (6) Chronic anticoagulation ICD Code: Z79.01 - FPC (current) use of anticoagulants (7) MRSA (methicillin resistant Staphylococcus aureus) ICD Code: A49.02 - Methicillin resistant Staphylococcus aureus infection, unspecified site (8) Hypertension ICD Code: I10 - Essential (primary) hypertension (9) Hyperlipidemia ICD Code: E78.5 - Hyperlipidemia, unspecified (10) Atrial fibrillation ICD Code: I48.91 - Unspecified atrial fibrillation Assessment and Plan Upper GI bleed suspected ulcer versus other we'll continue on chronic Protonix IV twice a day and Sandostatin will consult gastroenterology only placed on a clear liquid diet Continue fluids Hypertension resume home medications Diabetes continue on sliding scale coverage with Accu-Cheks before meals and at bedtime Anemia transfuse 2 units packed red blood cells at this time and monitor CBCs every 6 hours we'll give Tylenol and Benadryl prior and Lasix in between Chronic anticoagulation for atrial fibrillation we'll hold at this time Depression and anxiety continue on Cymbalta continue on amitriptyline Hyperlipidemia continue on Zocor Debility continue on physical therapy and occupational therapy Consult case management Have discussed with patient and RN and family Code Status Full code Discussed Condition With Patient and RN and and emergency room personnel and emergency room physician assistant child care teacher Physician Certification 2 Midnight Certification Type: Admission for Inpatient Services Order for Inpatient Services The services are ordered in accordance with Medicare regulations or non- Medicare payer requirements, as applicable. In the case of services not specified as inpatient-only, they are appropriately provided as inpatient services in accordance with the 2-midnight benchmark. Estimated LOS (days): 3 3 days is the estimated time the patient will need to remain in the hospital, assuming treatment plan goals are met and no additional complications. Post-Hospital Plan: Not yet determined Cal Liang DO Jan 20, 2017 15:14
[2017-01-20 16:31] LABS: HEMOGLOBIN 5.6 GM/DL (13.0-17.0)
[2017-01-20] MEDS ORDERED: INSULIN ASPART SUPPLEMENTAL SCALE SQ SCH (17:00)
[2017-01-20] MEDS: GABAPENTIN 300 MG CAP PO SCH (17:13)
[2017-01-20] MEDS: FERROUS SULFATE 325 MG (65 MG ELEMENTAL IRON) TAB PO SCH (17:13)
[2017-01-20] MEDS: INSULIN ASPART SUPPLEMENTAL SCALE SQ SCH ×2 (18:14→21:00)
--- NOTE | 2017-01-20 18:47 | MB ---
cc: THA ANDERSON M.D. DATE OF CONSULTATION: 01/20/2017. REASON FOR CONSULTATION: Severe anemia, GI bleed. DATE OF : 1940. HISTORY OF PRESENT ILLNESS: Thank you for the consultation. This is a 76-year-old gentleman who has multiple medical problems and he has atrial fibrillation, diabetes, hypertension. He was started on anticoagulation, Xarelto, a few months ago. The patient also has mitral valve replacement with a porcine valve. The patient had shortness of breast, dyspnea on exertion, dizziness and increase in heart rates with palpitations. He denied any GI bleed. No nausea or vomiting. No black stool. He saw his primary care doctor and he was found to be an be anemic. He was given iron supplement and Protonix. The patient got worse and he came in and was found to be severely anemic. The patient denies black tarry stool at this time. He had an upper endoscopy and a colonoscopy a few years ago in the past. He does not remember the results. PAST SURGICAL HISTORY: The past surgical history is significant for: 1. Mitral valve replacement. 2. Cholecystectomy. 3. Eye surgery, LASIK. 4. Laminectomy. 5. Left thumb surgery. SOCIAL HISTORY: No tobacco, drugs or alcohol. PAST MEDICAL HISTORY: His past medical history is significant for: 1. Atrial fibrillation. 2. Hypertension. 3. Diabetes. 4. Hypercholesterolemia. 5. Kidney stones. 6. Atrial fibrillation. ALLERGIES: 1. TETANUS. 2. RUBBER. MEDICATIONS: Reviewed in the chart. REVIEW OF SYSTEMS: All 12-point negative except for the history of present illness. PHYSICAL EXAMINATION: GENERAL: Alert, oriented and in no acute distress. VITAL SIGNS: Vital signs are stable at this time. HEAD, EYES, EARS, NOSE, THROAT: Pupils are round and reactive to light. NECK: The neck is supple. CHEST: Clear to auscultation and percussion. CARDIAC: Regular rate and rhythm at this time. No murmur or gallop. ABDOMEN: The abdomen is soft, nontender and nondistended. Positive bowel sounds. No hepatosplenomegaly. No masses. EXTREMITIES: No edema, clubbing or cyanosis. NEUROLOGIC: Neurologically intact. PSYCHIATRIC: Psychologically appropriate. MUSCULOSKELETAL: No range of motion abnormality or muscle strength issues. RECTAL: Not done by me; it was done in the emergency room and it was brown and guaiac-positive stool. IMAGING STUDIES: Chest x-ray negative. LABORATORY DATA: White count 6.1, hemoglobin 5.91 that went down to 5.6, platelets 185,000. INR 1.1. Liver function tests normal. BUN 19, creatinine 1.33. Albumin 3.3. ASSESSMENT: 76-year-old gentleman with multiple medical problems on anticoagulation. He has some indigestion and midepigastric discomfort with severe anemia most likely peptic ulcer disease with chronic blood loss but he has not had a colonoscopy for a while. RECOMMENDATIONS: 1. Packed RBC as needed to correct his anemia. 2. Follow up serial hemoglobin and hematocrit. 3. Hold anticoagulation for now until we do the procedure on Monday. 4. Colonoscopy and upper endoscopy on Monday since he took Xarelto today. Further plan to follow based on the findings on the endoscopy. The patient understands the plan and the procedure and complications and is agreeable to have it done. MD ADOLFO Hardy/ALISHA /6:08 PM /6:31 PM
[2017-01-20] MEDS: OCTREOTIDE INJ 500 MCG in SODIUM CHLORID 0.9% 500 ML INJ 499.5 ML IV SCH (19:35)
[2017-01-20] MEDS: PANTOPRAZOLE SODIUM 40 MG VIAL IV PUSH SCH (21:00)
[2017-01-20] MEDS: DOCUSATE SODIUM 50 MG/SENNA 8.6 MG TAB PO SCH (21:00)
[2017-01-20] MEDS ORDERED: SODIUM CHLORIDE 0.9% FLUSH 10 ML FLUSH IV FLUSH SCH (21:00)
[2017-01-20] MEDS: AMITRIPTYLINE HCL 25 MG TAB PO SCH (21:14)
[2017-01-20] MEDS: PRAVASTATIN SOD 40 MG TAB PO SCH (21:14)
[2017-01-20] MEDS: SODIUM CHLORIDE 0.9% FLUSH 10 ML FLUSH IV FLUSH SCH (21:18)
[2017-01-21] VITALS (7 sets, daily range): BP systolic 108–119; BP diastolic 59–76; PULSE 73–135; RESP 18–20; TEMP 95.9–98.7; O2SAT 93–97
[2017-01-21 02:11] LABS: HEMATOCRIT 22.8 % (39.0-51.0); HEMOGLOBIN 7.7 GM/DL (13.0-17.0)
[2017-01-21] MEDS: SODIUM CHLORIDE 0.9% FLUSH 10 ML FLUSH IV FLUSH SCH ×2 (08:39→20:51)
[2017-01-21] MEDS: INSULIN ASPART SUPPLEMENTAL SCALE SQ SCH ×4 (08:39→21:10)
[2017-01-21] MEDS: FERROUS SULFATE 325 MG (65 MG ELEMENTAL IRON) TAB PO SCH ×3 (08:40→18:04)
[2017-01-21] MEDS: PANTOPRAZOLE SODIUM 40 MG VIAL IV PUSH SCH ×2 (08:40→20:50)
[2017-01-21] MEDS: DULoxetine HCl DR 30 MG CAP PO SCH (08:40)
[2017-01-21] MEDS: DOCUSATE SODIUM 50 MG/SENNA 8.6 MG TAB PO SCH ×2 (08:40→20:51)
[2017-01-21] MEDS: METOPROLOL TARTRATE 25 MG TAB PO SCH (08:40)
[2017-01-21] MEDS: GABAPENTIN 300 MG CAP PO SCH ×3 (08:40→18:04)
[2017-01-21] MEDS: MULTIVITAMIN TAB PO SCH (08:40)
--- NOTE | 2017-01-21 14:51 | HHI.PR ---
Subjective Remarks Patient is feeling better today. CBC is pending. Based on CBC findings he may need further transfusion. He is off all of his previous blood thinners. Xarelto was taken yesterday so EGD and colonoscopy would not occur until 2 days from now. Objective Vital Signs Date Time Temp Pulse Resp B/P (MAP) Pulse Ox O2 Delivery O2 Flow Rate FiO2 01/21/17 12:00 98.7 77 20 113/59 (77) 94 01/21/17 08:00 95.9 127 20 108/72 (84) 97 01/21/17 03:32 96.7 76 18 119/69 (86) 97 01/20/17 23:30 98.9 18 117/64 98 01/20/17 23:14 99.1 71 18 138/74 (95) 96 01/20/17 21:20 99.0 75 18 118/76 98 01/20/17 21:07 99.1 76 18 112/61 98 01/20/17 20:41 98.7 76 18 105/66 95 01/20/17 19:42 98.7 75 19 103/55 (71) 95 01/20/17 17:50 97.2 76 18 121/63 97 01/20/17 17:30 97.2 75 18 115/62 100 01/20/17 15:38 01/20/17 15:24 98 I/O 01/20/17 01/20/17 01/20/17 01/21/17 01/21/17 01/21/17 07:00 15:00 23:00 07:00 15:00 23:00 Intake Total 875 ml 880 ml 1804 ml Output Total 400 ml 1725 ml Balance 475 ml -845 ml 1804 ml Intake Oral 360 ml 360 ml IV Total 100 ml 1804 ml Packed Cells 400 ml 400 ml Blood Product IV Normal Saline Flush 115 ml 20 ml Output Urine Total 400 ml 1725 ml # Voids 2 # Bowel Movements 0 0 Result Diagram: 01/21/17 0128 01/20/17 1315 Objective Remarks GENERAL: NAD, A&Ox3 HEAD: Normocephalic. NECK: Supple, trachea midline. No lymphadenopathy. EYES: No scleral icterus. No injection or drainage. CARDIOVASCULAR: Regular rate and rhythm without murmurs, gallops, or rubs. RESPIRATORY: Breath sounds equal bilaterally. No accessory muscle use. GASTROINTESTINAL: Abdomen soft, non-tender, nondistended. MUSCULOSKELETAL: No cyanosis, or edema. SKIN: Warm and dry. NEURO: No focal neurological deficitis. A/P Problem List: (1) Symptomatic anemia ICD Code: D64.9 - Anemia, unspecified (2) Gastrointestinal bleeding, upper ICD Code: K92.2 - Gastrointestinal hemorrhage, unspecified (3) Diabetes mellitus type 2 in obese ICD Code: E11.69 - Type 2 diabetes mellitus with other specified complication; E66.9 - Obesity, unspecified (4) History of OK (myocardial infarction) ICD Code: I25.2 - Old myocardial infarction Assessment and Plan Assessment and Plan 76-year-old male admitted secondary to GI bleed and severe anemia with symptoms GI bleeding Blood thinners discontinued Continue Sandostatin Continue Protonix GI following Clear liquid diet EGD planned Monday, possible colonoscopy Continue IV hydration Acute blood loss anemia Patient transfused 2 units packed red blood cells on 01/20/17 Evaluating CBC today May need further transfusion Hypertension Continue patient's baseline treatments Follow blood pressures Diabetes mellitus type 2 Follow blood sugars Insulin sliding scale Diabetic diet Atrial fibrillation Anticoagulation on hold due to bleeding Depression Anxiety Continue Cymbalta Continue amitriptyline Chronic debility History of CVA 3 Chronic lower extremity weakness Physical therapy Occupational therapy Hyperlipidemia Continue statin Follows in outpatient DVT Prophylaxis SCDs Code Status Full code Usman Draper MD Jan 21, 2017 14:50
[2017-01-21] MEDS: OCTREOTIDE INJ 500 MCG in SODIUM CHLORID 0.9% 500 ML INJ 499.5 ML IV SCH (15:00)
[2017-01-21 18:33] LABS: BASOPHIL % 0.8 % (0.0-2.0); EOSINOPHIL # 0.2 TH/MM3 (0-0.4); EOSINOPHIL % 3.4 % (0.0-4.0); HEMATOCRIT 26.5 % (39.0-51.0); HEMOGLOBIN 8.8 GM/DL (13.0-17.0); LYMPH % 20.4 % (9.0-44.0); LYMPHOCYTE # 1.2 TH/MM3 (1.0-4.8); MEAN CELL VOLUME 92.2 FL (80.0-100.0); MEAN CORPUSCULAR HEMOGLOBIN 30.7 PG (27.0-34.0); MEAN CORPUSCULAR HGB CONC 33.4 % (32.0-36.0); MEAN PLATELET VOLUME 7.5 FL (7.0-11.0); MONOCYTE # 0.5 TH/MM3 (0-0.9); NEUT % 67.4 % (16.0-70.0); PLATELET COUNT 188 TH/MM3 (150-450); RED BLOOD COUNT 2.88 MIL/MM3 (4.50-5.90); RED CELL DISTRIBUTION WIDTH 16.3 % (11.6-17.2)
[2017-01-21 19:22] LABS: ALBUMIN 3.4 GM/DL (3.4-5.0); ALKALINE PHOSPHATASE 86 U/L (45-117); ALT (GPT) 20 U/L (12-78); AST (GOT) 19 U/L (15-37); BICARBONATE 24.3 MEQ/L (21.0-32.0); BLOOD UREA NITROGEN 12 MG/DL (7-18); CALCIUM 8.4 MG/DL (8.5-10.1); CHLORIDE 107 MEQ/L (98-107); CREATININE 1.27 MG/DL (0.60-1.30); FREE T4 1.03 NG/DL (0.76-1.46); GLOMERULAR FILTRATION RATE 55 ML/MIN (>89); GLUCOSE,RANDOM 162 MG/DL (74-106); MAGNESIUM 1.9 MG/DL (1.5-2.5); PHOSPHORUS 3.3 MG/DL (2.5-4.9); SODIUM (NA) 140 MEQ/L (136-145); TOTAL PROTEIN 7.1 GM/DL (6.4-8.2)
[2017-01-21] MEDS: AMITRIPTYLINE HCL 25 MG TAB PO SCH (20:50)
[2017-01-21] MEDS: PRAVASTATIN SOD 40 MG TAB PO SCH (20:51)
[2017-01-21] MEDS ORDERED: METOPROLOL TARTRATE 25 MG TAB PO ONE (21:15)
[2017-01-21 23:37] LABS: HEMATOCRIT 23.8 % (39.0-51.0); HEMOGLOBIN 7.7 GM/DL (13.0-17.0)
[2017-01-22] VITALS (7 sets, daily range): BP systolic 104–149; BP diastolic 61–74; PULSE 70–100; RESP 18–20; TEMP 97.8–98.7; O2SAT 93–99
[2017-01-22 06:17] LABS: AUTOMATED NEUTROPHIL # 2.9 TH/MM3 (1.8-7.7); BASOPHIL % 0.8 % (0.0-2.0); EOSINOPHIL # 0.2 TH/MM3 (0-0.4); EOSINOPHIL % 3.6 % (0.0-4.0); HEMATOCRIT 23.8 % (39.0-51.0); HEMOGLOBIN 7.9 GM/DL (13.0-17.0); LYMPH % 29.1 % (9.0-44.0); LYMPHOCYTE # 1.5 TH/MM3 (1.0-4.8); MEAN CELL VOLUME 92.1 FL (80.0-100.0); MEAN CORPUSCULAR HEMOGLOBIN 30.4 PG (27.0-34.0); MEAN PLATELET VOLUME 7.1 FL (7.0-11.0); MONO % 9.3 % (0.0-8.0); MONOCYTE # 0.5 TH/MM3 (0-0.9); NEUT % 57.2 % (16.0-70.0); PLATELET COUNT 166 TH/MM3 (150-450); RED BLOOD COUNT 2.58 MIL/MM3 (4.50-5.90); RED CELL DISTRIBUTION WIDTH 15.8 % (11.6-17.2); WHITE BLOOD COUNT 5.1 TH/MM3 (4.0-11.0)
[2017-01-22 06:41] LABS: ALBUMIN 2.9 GM/DL (3.4-5.0); AST (GOT) 16 U/L (15-37); BICARBONATE 24.8 MEQ/L (21.0-32.0); BLOOD UREA NITROGEN 13 MG/DL (7-18); CALCIUM 8.2 MG/DL (8.5-10.1); CHLORIDE 107 MEQ/L (98-107); CREATININE 1.32 MG/DL (0.60-1.30); GLOMERULAR FILTRATION RATE 53 ML/MIN (>89); GLUCOSE,RANDOM 166 MG/DL (74-106); SODIUM (NA) 139 MEQ/L (136-145)
[2017-01-22 06:42] LABS: ALT (GPT) 21 U/L (12-78)
[2017-01-22 06:44] LABS: ALKALINE PHOSPHATASE 79 U/L (45-117); TOTAL PROTEIN 6.2 GM/DL (6.4-8.2)
[2017-01-22] MEDS: INSULIN ASPART SUPPLEMENTAL SCALE SQ SCH ×5 (08:58→21:00)
[2017-01-22] MEDS: PANTOPRAZOLE SODIUM 40 MG VIAL IV PUSH SCH ×2 (09:06→23:33)
[2017-01-22] MEDS: DULoxetine HCl DR 30 MG CAP PO SCH (09:06)
[2017-01-22] MEDS: DOCUSATE SODIUM 50 MG/SENNA 8.6 MG TAB PO SCH ×2 (09:06→23:34)
[2017-01-22] MEDS: SODIUM CHLORIDE 0.9% FLUSH 10 ML FLUSH IV FLUSH SCH ×2 (09:06→23:43)
[2017-01-22] MEDS: METOPROLOL TARTRATE 25 MG TAB PO SCH (09:07)
[2017-01-22] MEDS: GABAPENTIN 300 MG CAP PO SCH ×3 (09:07→18:12)
[2017-01-22] MEDS: MULTIVITAMIN TAB PO SCH (09:07)
[2017-01-22] MEDS: FERROUS SULFATE 325 MG (65 MG ELEMENTAL IRON) TAB PO SCH ×3 (09:09→18:12)
[2017-01-22 09:22] LABS: HEMOGLOBIN A1C 5.3 % (4.3-6.0)
[2017-01-22] MEDS: OCTREOTIDE INJ 500 MCG in SODIUM CHLORID 0.9% 500 ML INJ 499.5 ML IV SCH (11:08)
--- NOTE | 2017-01-22 15:56 | HHI.PR ---
Subjective Remarks Hemoglobin shows stability today. Anemia is present but no downward trend. Plan for GI procedure tomorrow. Tachycardia overnight. This appeared to be a sinus rhythm tachycardia. No evidence of paroxysmal atrial fibrillation. Objective Vital Signs Date Time Temp Pulse Resp B/P (MAP) Pulse Ox O2 Delivery O2 Flow Rate FiO2 01/22/17 12:00 97.8 73 20 112/63 (79) 93 01/22/17 07:52 70 01/22/17 04:00 98.7 74 18 114/63 (80) 97 01/22/17 00:00 98.0 80 18 104/61 (75) 94 01/21/17 20:38 95 01/21/17 20:00 98.4 135 18 108/76 (87) 96 01/21/17 16:00 97.5 73 20 115/68 (84) 93 I/O 01/21/17 01/21/17 01/21/17 01/22/17 01/22/17 01/22/17 07:00 15:00 23:00 07:00 15:00 23:00 Intake Total 880 ml 2284 ml 240 ml Output Total 1725 ml 450 ml 850 ml Balance -845 ml 1834 ml -610 ml Intake Oral 360 ml 480 ml 240 ml IV Total 100 ml 1804 ml Packed Cells 400 ml Blood Product IV Normal Saline Flush 20 ml Output Urine Total 1725 ml 450 ml 850 ml # Voids 2 1 1 # Bowel Movements 0 2 0 0 Result Diagram: 01/22/1736 01/22/17 05 Objective Remarks GENERAL: NAD, A&Ox3 HEAD: Normocephalic. NECK: Supple, trachea midline. No lymphadenopathy. EYES: No scleral icterus. No injection or drainage. CARDIOVASCULAR: Regular rate and rhythm without murmurs, gallops, or rubs. RESPIRATORY: Breath sounds equal bilaterally. No accessory muscle use. GASTROINTESTINAL: Abdomen soft, non-tender, nondistended. MUSCULOSKELETAL: No cyanosis, or edema. SKIN: Warm and dry. NEURO: No focal neurological deficitis. A/P Problem List: (1) Symptomatic anemia ICD Code: D64.9 - Anemia, unspecified (2) Gastrointestinal bleeding, upper ICD Code: K92.2 - Gastrointestinal hemorrhage, unspecified (3) Diabetes mellitus type 2 in obese ICD Code: E11.69 - Type 2 diabetes mellitus with other specified complication; E66.9 - Obesity, unspecified (4) History of [place] (myocardial infarction) ICD Code: I25.2 - Old myocardial infarction Assessment and Plan Assessment and Plan 76-year-old male admitted secondary to GI bleed and severe anemia with symptoms. Plan for GI scoping tomorrow. Labs reviewed. Patient is anemic without a downward trend. Continue to monitor CBC. GI bleeding Blood thinners discontinued Continue Sandostatin Continue Protonix GI following Clear liquid diet EGD planned Monday, possible colonoscopy Continue IV hydration Acute blood loss anemia Patient transfused 2 units packed red blood cells on 01/20/17 Evaluating CBC today May need further transfusion Hypertension Continue patient's baseline treatments Follow blood pressures Diabetes mellitus type 2 Follow blood sugars Insulin sliding scale Diabetic diet Past history of Atrial fibrillation Patient's baseline rhythm appears to be sinus rhythm based on monitoring thus far at this day He has one episode in the past of atrial fibrillation but this may have been incidental Anticoagulation on hold due to bleeding He is not a good candidate for anticoagulation in the future given this episode of GI bleeding Aspirin may be an option, though then if it is not as great if he doesn't have any chronic or recurrent atrial fibrillation Depression Anxiety Continue Cymbalta Continue amitriptyline Chronic debility History of CVA 3 Chronic lower extremity weakness Physical therapy Occupational therapy Hyperlipidemia Continue statin Follows in outpatient DVT Prophylaxis SCDs Code Status Full code Usman Draper MD Jan 22, 2017 15:56
[2017-01-22] MEDS ORDERED: PEG (High)/E-LYTE SOLN 4000 ML BTL PO ONE (16:00)
--- NOTE | 2017-01-22 21:13 | EKG ---
Date Performed: 01/20/2017 Time Performed: 13:01:13 PTAGE: 76 years EKG: Sinus rhythm BORDERLINE LEFT AXIS DEVIATION INCOMPLETE RIGHT BUNDLE BRANCH BLOCK BORDERLINE ECG NO PREVIOUS TRACING DOCTOR: Augusto Jones Interpretating Date/Time 01/22/2017 21:02:56
[2017-01-22] MEDS: PRAVASTATIN SOD 40 MG TAB PO SCH (23:32)
[2017-01-22] MEDS: AMITRIPTYLINE HCL 25 MG TAB PO SCH (23:33)
[2017-01-23 03:45] VITALS: BP 121/69; PULSE 86; RESP 18; TEMP 98; O2SAT 98
[2017-01-23] MEDS ORDERED: LACTATED RINGER'S 1000 ML IV PRN (04:15)
[2017-01-23] MEDS ORDERED: CHLORHEXIDINE GLUCONATE 2 % 1 PACK (2 CLOTHS) TOPICAL PRN (04:15)
[2017-01-23] MEDS ORDERED: POVIDONE IODINE 5% (ANTISEPSIS KIT) 4 APPLICATIONS EACH NARE PRN (04:15)
[2017-01-23] MEDS ORDERED: SODIUM CHLORID 0.9% 500 ML IV PRN (04:15)
[2017-01-23] MEDS ORDERED: METOPROLOL TARTRATE 25 MG TAB PO ONE (05:45)
[2017-01-23 05:49] LABS: AUTOMATED NEUTROPHIL # 2.7 TH/MM3 (1.8-7.7); BASOPHIL % 1.1 % (0.0-2.0); EOSINOPHIL # 0.2 TH/MM3 (0-0.4); EOSINOPHIL % 4.4 % (0.0-4.0); HEMATOCRIT 25.1 % (39.0-51.0); HEMOGLOBIN 8.2 GM/DL (13.0-17.0); LYMPH % 25.7 % (9.0-44.0); LYMPHOCYTE # 1.1 TH/MM3 (1.0-4.8); MEAN CELL VOLUME 92.9 FL (80.0-100.0); MEAN CORPUSCULAR HEMOGLOBIN 30.3 PG (27.0-34.0); MEAN CORPUSCULAR HGB CONC 32.6 % (32.0-36.0); MEAN PLATELET VOLUME 7.2 FL (7.0-11.0); MONOCYTE # 0.4 TH/MM3 (0-0.9); NEUT % 59.8 % (16.0-70.0); PLATELET COUNT 166 TH/MM3 (150-450); RED CELL DISTRIBUTION WIDTH 15.9 % (11.6-17.2); WHITE BLOOD COUNT 4.5 TH/MM3 (4.0-11.0)
[2017-01-23] MEDS: OCTREOTIDE INJ 500 MCG in SODIUM CHLORID 0.9% 500 ML INJ 499.5 ML IV SCH ×2 (06:09→23:50)
[2017-01-23 06:12] LABS: ALT (GPT) 18 U/L (12-78); AST (GOT) 17 U/L (15-37); BICARBONATE 26.1 MEQ/L (21.0-32.0); BLOOD UREA NITROGEN 10 MG/DL (7-18); CALCIUM 7.9 MG/DL (8.5-10.1); CHLORIDE 109 MEQ/L (98-107); CREATININE 1.25 MG/DL (0.60-1.30); GLOMERULAR FILTRATION RATE 56 ML/MIN (>89); GLUCOSE,RANDOM 179 MG/DL (74-106); SODIUM (NA) 141 MEQ/L (136-145)
[2017-01-23 06:14] LABS: ALKALINE PHOSPHATASE 83 U/L (45-117); TOTAL BILIRUBIN ADULT 0.7 MG/DL (0.2-1.0); TOTAL PROTEIN 6.4 GM/DL (6.4-8.2)
[2017-01-23 07:36] VITALS: BP 115/70; PULSE 73; RESP 18; TEMP 96.8; O2SAT 95
[2017-01-23] MEDS: INSULIN ASPART SUPPLEMENTAL SCALE SQ SCH ×4 (08:00→23:40)
[2017-01-23] MEDS: SODIUM CHLORIDE 0.9% FLUSH 10 ML FLUSH IV FLUSH SCH ×2 (08:31→23:39)
[2017-01-23] MEDS: DOCUSATE SODIUM 50 MG/SENNA 8.6 MG TAB PO SCH ×2 (08:31→08:41)
[2017-01-23] MEDS: METOPROLOL TARTRATE 25 MG TAB PO SCH (08:42)
[2017-01-23] MEDS: DULoxetine HCl DR 30 MG CAP PO SCH (08:42)
[2017-01-23] MEDS: FERROUS SULFATE 325 MG (65 MG ELEMENTAL IRON) TAB PO SCH ×3 (08:42→20:11)
[2017-01-23] MEDS: PANTOPRAZOLE SODIUM 40 MG VIAL IV PUSH SCH ×2 (08:42→23:39)
[2017-01-23] MEDS: GABAPENTIN 300 MG CAP PO SCH ×3 (08:42→20:11)
[2017-01-23] MEDS: MULTIVITAMIN TAB PO SCH (08:42)
[2017-01-23 08:56] VITALS: BP 115/70; PULSE 96; RESP 18; TEMP 96.8
--- NOTE | 2017-01-23 11:05 | HHI.PR ---
Subjective Remarks In bed says eh feels much better today after blood transfusion. No n/v/d/c. Deneis chest pain or sob. Has sob with walking. Palpitations at times. No more bleeding. Objective Vitals Vital Signs Date Time Temp Pulse Resp B/P (MAP) Pulse Ox O2 Delivery O2 Flow Rate FiO2 01/23/17 08:56 96.8 96 18 115/70 (85) 01/23/17 07:36 96.8 73 18 115/70 (85) 95 01/23/17 03:45 98.0 86 18 121/69 (86) 98 01/22/17 23:05 98.1 94 18 139/71 (93) 95 01/22/17 19:20 97.9 100 18 149/73 (98) 99 01/22/17 16:00 98.0 80 20 131/74 (93) 96 01/22/17 12:00 97.8 73 20 112/63 (79) 93 I/O 01/22/17 01/22/17 01/22/17 01/23/17 01/23/17 01/23/17 07:00 15:00 23:00 07:00 15:00 23:00 Intake Total 360 ml 4928 ml 0 ml Output Total 200 ml 1075 ml 550 ml Balance 160 ml 3853 ml -550 ml Intake Oral 360 ml 3785 ml 0 ml IV Total 1143 ml Output Urine Total 200 ml 1075 ml 550 ml # Voids 1 # Bowel Movements 0 1 3 3 Result Diagram: 01/23/17 0505 01/23/17 0505 Imaging Last Impressions Chest X-Ray 01/20/17 1308 Signed Impressions: Service Date/Time: Friday, January 20, 2017 13:54 - CONCLUSION: 1. No acute cardiopulmonary disease. Ted Clemens MD Objective Remarks GENERAL: NAD, A&Ox3 CARDIOVASCULAR: Regular rate and rhythm without murmurs, gallops, or rubs. RESPIRATORY: Breath sounds equal bilaterally. No accessory muscle use. GASTROINTESTINAL: Abdomen soft, non-tender, nondistended. MUSCULOSKELETAL: No cyanosis, or edema. SKIN: Warm and dry. NEURO: No focal neurological deficitis. A/P Problem List: (1) S/P MVR (mitral valve replacement) ICD Code: Z95.2 - Presence of prosthetic heart valve (2) Gastrointestinal bleeding, upper ICD Code: K92.2 - Gastrointestinal hemorrhage, unspecified (3) Symptomatic anemia ICD Code: D64.9 - Anemia, unspecified (4) History of [place] (myocardial infarction) ICD Code: I25.2 - Old myocardial infarction (5) Diabetes mellitus type 2 in obese ICD Code: E11.69 - Type 2 diabetes mellitus with other specified complication; E66.9 - Obesity, unspecified (6) Chronic anticoagulation ICD Code: Z79.01 - correction (current) use of anticoagulants (7) MRSA (methicillin resistant Staphylococcus aureus) ICD Code: A49.02 - Methicillin resistant Staphylococcus aureus infection, unspecified site (8) Hypertension ICD Code: I10 - Essential (primary) hypertension (9) Hyperlipidemia ICD Code: E78.5 - Hyperlipidemia, unspecified (10) Atrial fibrillation ICD Code: I48.91 - Unspecified atrial fibrillation Assessment and Plan 76-year-old male admitted secondary to GI bleed and severe anemia with symptoms. Plan for GI scoping tomorrow. Labs reviewed. Patient is anemic without a downward trend. Continue to monitor CBC. GI bleeding Blood thinners discontinued Continue Sandostatin Continue Protonix GI following Clear liquid diet EGD 01/23/17, possible colonoscopy Continue IV hydration Acute blood loss anemia Patient transfused 2 units packed red blood cells on 01/20/17 Evaluating CBC today May need further transfusion Hypertension Continue patient's baseline treatments Follow blood pressures Diabetes mellitus type 2 Follow blood sugars Insulin sliding scale Diabetic diet Past history of Atrial fibrillation Patient's baseline rhythm appears to be sinus rhythm based on monitoring thus far at this day He has one episode in the past of atrial fibrillation but this may have been incidental Anticoagulation on hold due to bleeding He is not a good candidate for anticoagulation in the future given this episode of GI bleeding Aspirin may be an option, though then if it is not as great if he doesn't have any chronic or recurrent atrial fibrillation Depression Anxiety Continue Cymbalta Continue amitriptyline Chronic debility History of CVA 3 Chronic lower extremity weakness Physical therapy Occupational therapy Hyperlipidemia Continue statin Follows in outpatient DVT Prophylaxis SCDs Code Status Full code Discussed with the patient, nurse, family at bedside Caitlin Barron MD Jan 23, 2017 11:05
--- NOTE | 2017-01-23 11:17 | HHI.DS ---
Discharge Summary Admission Date Jan 20, 2017 at 14:31 Discharge Date: Jan 23, 2017 Admitting Diagnosis symptomatic anemia, GI bleed (1) S/P MVR (mitral valve replacement) ICD Code: Z95.2 - Presence of prosthetic heart valve (2) Gastrointestinal bleeding, upper ICD Code: K92.2 - Gastrointestinal hemorrhage, unspecified (3) Symptomatic anemia ICD Code: D64.9 - Anemia, unspecified (4) History of [place] (myocardial infarction) ICD Code: I25.2 - Old myocardial infarction (5) Diabetes mellitus type 2 in obese ICD Code: E11.69 - Type 2 diabetes mellitus with other specified complication; E66.9 - Obesity, unspecified (6) Chronic anticoagulation ICD Code: Z79.01 - assisted (current) use of anticoagulants (7) MRSA (methicillin resistant Staphylococcus aureus) ICD Code: A49.02 - Methicillin resistant Staphylococcus aureus infection, unspecified site (8) Hypertension ICD Code: I10 - Essential (primary) hypertension (9) Hyperlipidemia ICD Code: E78.5 - Hyperlipidemia, unspecified (10) Atrial fibrillation ICD Code: I48.91 - Unspecified atrial fibrillation Procedures EGD/ colonoscopy Brief History - From Admission 76-year-old male with PMH of blindness, DM T2, HTN, HLD, A. fib, MRSA, MVR with porcine valve, [place], on Xarelto presents to the ED for evaluation of 1 week history of worsening dyspnea on exertion, palpitations, dizziness. The patient denies headache, vision changes, chest pain, abdominal pain, nausea, vomiting, melena, hematochezia, dysuria, hematuria. He saw his primary care, Dr. Murphy , on Monday. He was told on Monday that he is anemic and ordered to begin taking iron supplements. He has been doing this with no improvement of symptoms. He states that he had panendoscopy "too many years ago" that was normal. He is followed by Dr. Matthews, cardiology. Patient states his hemoglobin was approximately 9 earlier this week it is now 5.9 will be admitted and transfused and gastroenterology will be consult will place on Protonix twice a day as well as Sandostatin CBC/BMP: 01/23/17 0505 01/23/17 0505 Significant Findings Laboratory Tests Test 01/20/17 13:15 01/20/17 13:30 01/20/17 15:35 01/21/17 01:28 Red Blood Count 1.92 MIL/MM3 (4.50-5.90) Hemoglobin 5.9 GM/DL (13.0-17.0) 5.6 GM/DL (13.0-17.0) 7.7 GM/DL (13.0-17.0) Hematocrit 18.1 % (39.0-51.0) 17.0 % (39.0-51.0) 22.8 % (39.0-51.0) Prothrombin Time 12.3 SEC (9.8-11.6) Activated Partial Thromboplast Time 33.2 SEC (24.3-30.1) Blood Urea Nitrogen 19 MG/DL (7-18) Creatinine 1.33 MG/DL (0.60-1.30) Random Glucose 290 MG/DL (74-106) Albumin 3.3 GM/DL (3.4-5.0) Calcium Level 7.8 MG/DL (8.5-10.1) Sodium Level 135 MEQ/L (136-145) Estimat Glomerular Filtration Rate 52 ML/MIN (>89) Troponin I LESS THAN 0.02 NG/ML B-Type Natriuretic Peptide 414 PG/ML (0-100) Urine Glucose (UA) 300 mg/dL (NEG) Urine Mucus FEW /lpf (OCC) Test 01/21/17 17:34 01/21/17 23:00 01/22/17 05:36 01/23/17 05:05 Red Blood Count 2.88 MIL/MM3 (4.50-5.90) 2.58 MIL/MM3 (4.50-5.90) 2.70 MIL/MM3 (4.50-5.90) Hemoglobin 8.8 GM/DL (13.0-17.0) 7.7 GM/DL (13.0-17.0) 7.9 GM/DL (13.0-17.0) 8.2 GM/DL (13.0-17.0) Hematocrit 26.5 % (39.0-51.0) 23.8 % (39.0-51.0) 23.8 % (39.0-51.0) 25.1 % (39.0-51.0) Random Glucose 162 MG/DL (74-106) 166 MG/DL (74-106) 179 MG/DL (74-106) Calcium Level 8.4 MG/DL (8.5-10.1) 8.2 MG/DL (8.5-10.1) 7.9 MG/DL (8.5-10.1) Estimat Glomerular Filtration Rate 55 ML/MIN (>89) 53 ML/MIN (>89) 56 ML/MIN (>89) Monocytes (%) (Auto) 9.3 % (0.0-8.0) 9.0 % (0.0-8.0) Creatinine 1.32 MG/DL (0.60-1.30) Total Protein 6.2 GM/DL (6.4-8.2) Albumin 2.9 GM/DL (3.4-5.0) 3.0 GM/DL (3.4-5.0) Eosinophils (%) (Auto) 4.4 % (0.0-4.0) Chloride Level 109 MEQ/L (98-107) Imaging Last Impressions Abdomen/Pelvis CT 01/23/17 0000 Signed Impressions: Service Date/Time: Monday, January 23, 2017 22:35 - CONCLUSION: 1. Nonobstructive bowel gas pattern with no inflammatory change. 2. Small bilateral pleural effusions. 3. Small amount of fluid in the pelvis. 4. Status post cholecystectomy. Brandyn Wetzel MD Chest X-Ray 01/20/17 1308 Signed Impressions: Service Date/Time: Friday, January 20, 2017 13:54 - CONCLUSION: 1. No acute cardiopulmonary disease. Ted Clemens MD PE at Discharge GENERAL: NAD, A&Ox3 CARDIOVASCULAR: Regular rate and rhythm without murmurs, gallops, or rubs. RESPIRATORY: Breath sounds equal bilaterally. No accessory muscle use. GASTROINTESTINAL: Abdomen soft, non-tender, nondistended. MUSCULOSKELETAL: No cyanosis, or edema. SKIN: Warm and dry. NEURO: No focal neurological deficitis. Pt update on day of discharge Feels improved. Some sob while ambulating but much improved. No more tachycardia. was able to eat some breakfast. No n/v/d/c. Had a normal colored stool. No bleeding. Hospital Course 76-year-old male admitted secondary to GI bleed and severe anemia with symptoms. Plan for GI scoping tomorrow. Labs reviewed. Patient is anemic without a downward trend. Continue to monitor CBC. GI bleeding Blood thinners discontinued Continue Sandostatin Continue Protonix GI following Clear liquid diet EGD /colonoscopy 01/23/17 No source of bleeding identified by panendoscopy, also CTA abd /pelvis reviewed and no acute findings. Patient will f/u as OP with GI for capsule endoscopy. Gastritis antral, continue PPI. Also will have hematology eval as OP. Patient with Diverticulosis , internal and external hemorrhoids. To have benefiber 2 tbs daily, probiotics from [employer] or [employer]. . To have repeat colonoscopy in 1 year. Received 2 U PRBC and IV hydration Acute blood loss anemia Patient transfused 2 units packed red blood cells on 01/20/17 Evaluating CBC today May need further transfusion Hypertension Continue patient's baseline treatments Follow blood pressures Diabetes mellitus type 2 Follow blood sugars Insulin sliding scale Diabetic diet Past history of Atrial fibrillation Patient's baseline rhythm appears to be sinus rhythm based on monitoring thus far at this day He has one episode in the past of atrial fibrillation but this may have been incidental Anticoagulation on hold due to bleeding He is not a good candidate for anticoagulation in the future given this episode of GI bleeding Aspirin may be an option, though then if it is not as great if he doesn't have any chronic or recurrent atrial fibrillation Depression Anxiety Continue Cymbalta Continue amitriptyline Chronic debility History of CVA 3 Chronic lower extremity weakness Physical therapy Occupational therapy Hyperlipidemia Continue statin Follows in outpatient DVT Prophylaxis SCDs Code Status Full code Discussed with the patient, nurse, family at bedside Patient improved his H/H is stable. No tachycardia. Feels comfortable to go home. Discharged in stable condition to follow up as OP with PCP and consultants. Pt Condition on Discharge: Stable Discharge Disposition: Discharge Home Discharge Time: > 30 minutes Discharge Instructions DIET: Follow Instructions for: Heart Healthy Diet Activities you can perform: Regular-No Restrictions Follow up Referrals: Cardiology - 1 Week Gastroenterology - 2 Weeks Oncology/Hematology - 2-3 Days PCP Follow-up - 2-3 Days SNF/SENIOR CARE/ with [facility] New Medications: Lactobacillus Acidophilus (Lactinex) 1 Chew 1 TAB CHEW DAILY for Nutritional Supplement, #30 TAB 0 Refills Pantoprazole (Pantoprazole) 40 Mg Tab 40 MG PO DAILY for Reflux, #30 TAB 0 Refills Wheat Dextrin (Benefiber) 3 Gram/3.8 Gram Powder 1 CAN PO BID NEB for nutritional supplement for 30 Days, CAN Continued Medications: Amitriptyline (Amitriptyline) 25 Mg Tab 25 MG PO HS for Control Depression, #30 TAB 0 Refills Ascorbic Acid (Vitamin C) 1,[address] DR (Cymbalta DR) 30 Mg Capdr 30 MG PO DAILY, #30 CAP 0 Refills Ferrous Sulfate (Iron) 325 Mg Cap 325 MG PO TIDPC for Nutritional Supplement, #90 TAB 0 Refills Gabapentin (Gabapentin) 300 Mg Cap 300 MG PO TID, #90 CAP 0 Refills Insulin Human NPH Inj (Humulin N Inj) 1,000 Unit/10 Ml Vial SQ BID for Blood Sugar Management, #10 ML 0 Refills PER SLIDING SCALE Metoprolol Tartrate (Metoprolol Tartrate) 25 Mg Tab 25 MG PO DAILY, #30 TAB 0 Refills Multiple Vitamin (Multiple Vitamin) 1 Tab 1 TAB PO DAILY for Nutritional Supplement, TAB 0 Refills Rivaroxaban (Xarelto) 15 Mg Tab 15 MG PO DAILY for Blood Clot Prevention, TAB 0 Refills Simvastatin (Zocor) 20 Mg Tab 20 MG PO HS for Cholesterol Management, #30 TAB 0 Refills [Humulin R ] () SQ DIRECTED Caitlin Barron MD Jan 23, 2017 11:17
[2017-01-23 11:48] VITALS: BP 102/58; PULSE 64; RESP 18; TEMP 97.6; O2SAT 96
--- NOTE | 2017-01-23 12:45 | EKG ---
Date Performed: 01/23/2017 Time Performed: 05:57:18 PTAGE: 76 years EKG: Normal Sinus rhythm Possible left anterior fascicular block Septal ST-T changes are nonspecific Borderline ECG PREVIOUS TRACING : 01/20/2017 13.01 Compared to prior tracing no significant change DOCTOR: Hood Bishop Interpretating Date/Time 01/23/2017 12:44:46
[2017-01-23 16:00] VITALS: BP 110/64; PULSE 75; RESP 18; TEMP 96; O2SAT 98
[2017-01-23] MEDS ORDERED: DO NOT ADM ANY ANTICOAGULANT DRUGS PRN (18:33)
[2017-01-23] MEDS ORDERED: DIATRIZOATE MEGLUM/DIATRIZOATE SOD 9 ML CUP PO ONE (18:36)
--- NOTE | 2017-01-23 18:38 | GIPROC ---
[facility] [address] [facility]. [facility], [address] COLONOSCOPY PROCEDURE REPORT EXAM DATE: 01/23/2017 PATIENT NAME: Brandyn Brian MR #: [id number] BIRTHDATE: 1940 ENDOSCOPIST: Rosa Isela Nath MD ORDER #: [id number] TRUCK OPERATOR: Daniel Holbrook and Nanette Lester STATUS: inpatient INDICATIONS: The patient is a 76 yr old male here for a colonoscopy due to anemia PROCEDURE PERFORMED: Colonoscopy, diagnostic MEDICATIONS: None and Per Anesthesia. PREP QUALITY: 30 % obscured PREP TYPE:Other: ESTIMATED BLOOD LOSS: None CONSENT: The patient understands the risks and benefits of the procedure and understands that these risks include, but are not limited to: sedation, allergic reaction, infection, perforation and/or bleeding. Alternative means of evaluation and treatment include, among others: physical exam, x-rays, and/or surgical intervention. The patient elects to proceed with this endoscopic procedure. medical equipment was checked for proper function. Hand hygiene and appropriate measures for infection prevention was taken. After the risks, benefits and alternatives of the procedure were thoroughly explained, Informed consent was verified, confirmed and timeout was successfully executed by the treatment team. A digital exam revealed external hemorrhoids The Pentax [id number] endoscope was introduced through the anus and advanced to the cecum, which was identified by both the appendix and ileocecal valve. The instrument was then slowly withdrawn as the colon was fully examined. COLON FINDINGS: Semisolid stool tortous colon diverticulosis sigmoid,descending. Retroflexed views revealed internal hemorrhoids and Retroflexed views revealed small internal hemorrhoids The scope was then completely withdrawn from the patient and the procedure terminated. PROCEDURE WITHDRAWAL TIME:6minutes ADVERSE EVENTS: There were no complications. IMPRESSIONS: 1. Semisolid stool tortous colon diverticulosis sigmoid,descending 2. Retroflexed views revealed internal hemorrhoids 3. Retroflexed views revealed small internal hemorrhoids 4. Revealed external hemorrhoids RECOMMENDATIONS: 1. Benefiber 2 tsp daily 2. Probiotics from any [facility] or health food store RECALL: Return 1 year Colonoscopy Rosa Isela Nath MD eSigned: Rosa Isela Nath MD 01/23/2017 6:38 PM cc:
--- NOTE | 2017-01-23 18:38 | GIPROC ---
[facility] [address] [facility]. [facility], [address] COLONOSCOPY PROCEDURE REPORT EXAM DATE: 01/23/2017 PATIENT NAME: Brandyn Brian MR #: [id number] BIRTHDATE: 1940 ENDOSCOPIST: Rosa Isela Nath MD ORDER #: [id number] PLASTICS WORKER: Daniel Holbrook and Nanette Lester STATUS: inpatient INDICATIONS: The patient is a 76 yr old male here for a colonoscopy due to anemia PROCEDURE PERFORMED: Colonoscopy, diagnostic MEDICATIONS: None and Per Anesthesia. PREP QUALITY: 30 % obscured PREP TYPE:Other: ESTIMATED BLOOD LOSS: None CONSENT: The patient understands the risks and benefits of the procedure and understands that these risks include, but are not limited to: sedation, allergic reaction, infection, perforation and/or bleeding. Alternative means of evaluation and treatment include, among others: physical exam, x-rays, and/or surgical intervention. The patient elects to proceed with this endoscopic procedure. medical equipment was checked for proper function. Hand hygiene and appropriate measures for infection prevention was taken. After the risks, benefits and alternatives of the procedure were thoroughly explained, Informed consent was verified, confirmed and timeout was successfully executed by the treatment team. A digital exam revealed external hemorrhoids The Pentax [id number] endoscope was introduced through the anus and advanced to the cecum, which was identified by both the appendix and ileocecal valve. The instrument was then slowly withdrawn as the colon was fully examined. COLON FINDINGS: Semisolid stool tortous colon diverticulosis sigmoid,descending. Retroflexed views revealed internal hemorrhoids and Retroflexed views revealed small internal hemorrhoids The scope was then completely withdrawn from the patient and the procedure terminated. PROCEDURE WITHDRAWAL TIME:6minutes ADVERSE EVENTS: There were no complications. IMPRESSIONS: 1. Semisolid stool tortous colon diverticulosis sigmoid,descending 2. Retroflexed views revealed internal hemorrhoids 3. Retroflexed views revealed small internal hemorrhoids 4. Revealed external hemorrhoids RECOMMENDATIONS: 1. Benefiber 2 tsp daily 2. Probiotics from any [facility] or health food store RECALL: Return 1 year Colonoscopy Rosa Isela Nath MD eSigned: Rosa Isela Nath MD 01/23/2017 6:38 PM cc:
--- NOTE | 2017-01-23 18:38 | GIPROC ---
[facility] [address] [facility]. [facility], [address] COLONOSCOPY PROCEDURE REPORT EXAM DATE: 01/23/2017 PATIENT NAME: Brandyn Brian MR #: [id number] BIRTHDATE: 1940 ENDOSCOPIST: Rosa Isela Nath MD ORDER #: [id number] TRAY SETTER: Daniel Holbrook and Nanette Lester STATUS: inpatient INDICATIONS: The patient is a 76 yr old male here for a colonoscopy due to anemia PROCEDURE PERFORMED: Colonoscopy, diagnostic MEDICATIONS: None and Per Anesthesia. PREP QUALITY: 30 % obscured PREP TYPE:Other: ESTIMATED BLOOD LOSS: None CONSENT: The patient understands the risks and benefits of the procedure and understands that these risks include, but are not limited to: sedation, allergic reaction, infection, perforation and/or bleeding. Alternative means of evaluation and treatment include, among others: physical exam, x-rays, and/or surgical intervention. The patient elects to proceed with this endoscopic procedure. medical equipment was checked for proper function. Hand hygiene and appropriate measures for infection prevention was taken. After the risks, benefits and alternatives of the procedure were thoroughly explained, Informed consent was verified, confirmed and timeout was successfully executed by the treatment team. A digital exam revealed external hemorrhoids The Pentax [id number] endoscope was introduced through the anus and advanced to the cecum, which was identified by both the appendix and ileocecal valve. The instrument was then slowly withdrawn as the colon was fully examined. COLON FINDINGS: Semisolid stool tortous colon diverticulosis sigmoid,descending. Retroflexed views revealed internal hemorrhoids and Retroflexed views revealed small internal hemorrhoids The scope was then completely withdrawn from the patient and the procedure terminated. PROCEDURE WITHDRAWAL TIME:6minutes ADVERSE EVENTS: There were no complications. IMPRESSIONS: 1. Semisolid stool tortous colon diverticulosis sigmoid,descending 2. Retroflexed views revealed internal hemorrhoids 3. Retroflexed views revealed small internal hemorrhoids 4. Revealed external hemorrhoids RECOMMENDATIONS: 1. Benefiber 2 tsp daily 2. Probiotics from any [facility] or health food store RECALL: Return 1 year Colonoscopy Rosa Isela Nath MD eSigned: Rosa Isela Nath MD 01/23/2017 6:38 PM cc:
--- NOTE | 2017-01-23 18:41 | GIPROC ---
[facility] [address] [facility]. [facility], [address] EGD PROCEDURE REPORT EXAM DATE: 01/23/2017 PATIENT NAME: Brandyn Brian MR #: [id number] BIRTHDATE: 1940 ATTENDING: Rosa Isela Nath MD ORDER #: [id number] FLUID DYNAMICIST: Daniel Holbrook and Nanette Lester STATUS: inpatient INDICATIONS: The patient is a 76 yr old male here for an EGD due to anemia PROCEDURE PERFORMED: EGD w/ biopsy MEDICATIONS: None and Per Anesthesia. TOPICAL ANESTHETIC: none CONSENT: The patient understands the risks and benefits of the procedure and understands that these risks include, but are not limited to: sedation, allergic reaction, infection, perforation and/or bleeding. Alternative means of evaluation and treatment include, among others: physical exam, x-rays, and/or surgical intervention. The patient elects to proceed with this endoscopic procedure. medical equipment was checked for proper function. Hand hygiene and appropriate measures for infection prevention was taken. After the risks, benefits and alternatives of the procedure were thoroughly explained, Informed consent was verified, confirmed and timeout was successfully executed by the treatment team. The patient was anesthetized with topical anesthesia and the EC-3490Li (Pedi C) endoscope was introduced through the mouth and advanced to the second portion of the duodenum. Retroflexed views revealed a hiatal hernia The gastroscope was then slowly withdrawn and removed. Gastritis antrum-biopsy duodenum normal-biopsy. ADVERSE EVENTS: There were no complications. IMPRESSIONS: 1. Gastritis antrum-biopsy duodenum normal-biopsy 2. Retroflexed views revealed a hiatal hernia RECOMMENDATIONS: 1. Await biopsy results. Biopsy results will not be ready for 7-10 days. If you don't hear from us in two weeks, call our office for biopsy results. 2. Anti-reflux regimen 3. Continue PPI 4. Diabetic diet ct abddomen/pelvis if negative capsule endoscopy op, hematology eval patient also has history of epistaxis PATIENT CONDITION: stable DISPOSITION: Inpatient REPEAT EXAM: Return as needed for EGD Rosa Isela Nath MD eSigned: Rosa Isela Nath MD 01/23/2017 6:41 PM cc: PATIENT NAME: rBandyn Brian MR#: [id number]
--- NOTE | 2017-01-23 18:41 | GIPROC ---
[facility] [address] [facility]. [facility], [address] EGD PROCEDURE REPORT EXAM DATE: 01/23/2017 PATIENT NAME: Brandyn Brian MR #: [id number] BIRTHDATE: 1940 ATTENDING: Rosa Isela Nath MD ORDER #: [id number] SMALL MACHINE BINDERY OPERATOR: Daniel Holbrook and Nanette Lester STATUS: inpatient INDICATIONS: The patient is a 76 yr old male here for an EGD due to anemia PROCEDURE PERFORMED: EGD w/ biopsy MEDICATIONS: None and Per Anesthesia. TOPICAL ANESTHETIC: none CONSENT: The patient understands the risks and benefits of the procedure and understands that these risks include, but are not limited to: sedation, allergic reaction, infection, perforation and/or bleeding. Alternative means of evaluation and treatment include, among others: physical exam, x-rays, and/or surgical intervention. The patient elects to proceed with this endoscopic procedure. medical equipment was checked for proper function. Hand hygiene and appropriate measures for infection prevention was taken. After the risks, benefits and alternatives of the procedure were thoroughly explained, Informed consent was verified, confirmed and timeout was successfully executed by the treatment team. The patient was anesthetized with topical anesthesia and the EC-3490Li (Pedi C) endoscope was introduced through the mouth and advanced to the second portion of the duodenum. Retroflexed views revealed a hiatal hernia The gastroscope was then slowly withdrawn and removed. Gastritis antrum-biopsy duodenum normal-biopsy. ADVERSE EVENTS: There were no complications. IMPRESSIONS: 1. Gastritis antrum-biopsy duodenum normal-biopsy 2. Retroflexed views revealed a hiatal hernia RECOMMENDATIONS: 1. Await biopsy results. Biopsy results will not be ready for 7-10 days. If you don't hear from us in two weeks, call our office for biopsy results. 2. Anti-reflux regimen 3. Continue PPI 4. Diabetic diet ct abddomen/pelvis if negative capsule endoscopy op, hematology eval patient also has history of epistaxis PATIENT CONDITION: stable DISPOSITION: Inpatient REPEAT EXAM: Return as needed for EGD Rosa Isela Nath MD eSigned: Rosa Isela Nath MD 01/23/2017 6:41 PM cc: PATIENT NAME: Brandyn Brian MR#: [id number]
--- NOTE | 2017-01-23 18:41 | GIPROC ---
[facility] [address] [facility]. [facility], [address] EGD PROCEDURE REPORT EXAM DATE: 01/23/2017 PATIENT NAME: Brandyn Brian MR #: [id number] BIRTHDATE: 1940 ATTENDING: Rosa Isela Nath MD ORDER #: [id number] ASBESTOS PIPE SUPERVISOR: Daniel Holbrook and Nanette Lester STATUS: inpatient INDICATIONS: The patient is a 76 yr old male here for an EGD due to anemia PROCEDURE PERFORMED: EGD w/ biopsy MEDICATIONS: None and Per Anesthesia. TOPICAL ANESTHETIC: none CONSENT: The patient understands the risks and benefits of the procedure and understands that these risks include, but are not limited to: sedation, allergic reaction, infection, perforation and/or bleeding. Alternative means of evaluation and treatment include, among others: physical exam, x-rays, and/or surgical intervention. The patient elects to proceed with this endoscopic procedure. medical equipment was checked for proper function. Hand hygiene and appropriate measures for infection prevention was taken. After the risks, benefits and alternatives of the procedure were thoroughly explained, Informed consent was verified, confirmed and timeout was successfully executed by the treatment team. The patient was anesthetized with topical anesthesia and the EC-3490Li (Pedi C) endoscope was introduced through the mouth and advanced to the second portion of the duodenum. Retroflexed views revealed a hiatal hernia The gastroscope was then slowly withdrawn and removed. Gastritis antrum-biopsy duodenum normal-biopsy. ADVERSE EVENTS: There were no complications. IMPRESSIONS: 1. Gastritis antrum-biopsy duodenum normal-biopsy 2. Retroflexed views revealed a hiatal hernia RECOMMENDATIONS: 1. Await biopsy results. Biopsy results will not be ready for 7-10 days. If you don't hear from us in two weeks, call our office for biopsy results. 2. Anti-reflux regimen 3. Continue PPI 4. Diabetic diet ct abddomen/pelvis if negative capsule endoscopy op, hematology eval patient also has history of epistaxis PATIENT CONDITION: stable DISPOSITION: Inpatient REPEAT EXAM: Return as needed for EGD Rosa Isela Nath MD eSigned: Rosa Isela Nath MD 01/23/2017 6:41 PM cc: PATIENT NAME: Brandyn Brian MR#: [id number]
[2017-01-23] MEDS: PRAVASTATIN SOD 40 MG TAB PO SCH (21:00)
--- NOTE | 2017-01-23 22:49 | RADRPT ---
EXAM DATE/TIME: 01/23/2017 22:35 [facility] COMPARISON: No previous studies available for comparison. INDICATIONS : Anemia. ORAL CONTRAST: Prescribed oral contrast ingested. RADIATION DOSE: 16.21 CTDIvol (mGy) MEDICAL HISTORY : Hypertension. Diabetes. SURGICAL HISTORY : Cholecystectomy. Laminectomy. ENCOUNTER: Initial ACUITY: 1 day PAIN SCALE: 0/10 LOCATION: Bilateral abdomen TECHNIQUE: Volumetric scanning of the abdomen and pelvis was performed. Using automated exposure control and ad justment of the mA and/or kV according to patient size, radiation dose was kept as low as reasonably achievable to obtain optimal diagnostic quality images. DICOM format image data is available electro nically for review and comparison. FINDINGS: LOWER LUNGS: There are small bilateral pleural effusions. The patient is status post median sternotomy. Epicardial pacer wires are noted. LIVER: Homogeneous density without lesion. There is no dilation of the biliary tree. Status post cholecyste ctomy. SPLEEN: Normal size without lesion. PANCREAS: Within normal limits. KIDNEYS: Normal in size and shape. There is no mass, stone, or hydronephrosis. ADRENAL GLANDS: Within normal limits. VASCULAR: There is no aortic aneurysm. BOWEL/MESENTERY: The stomach, small bowel, and colon demonstrate no acute abnormality. There is no free intraperitone al air. There is a small amount of fluid in the pelvis. ABDOMINAL WALL: Within normal limits. RETROPERITONEUM: There is no lymphadenopathy. BLADDER: No wall thickening or mass. REPRODUCTIVE: Within normal limits. INGUINAL: There is no lymphadenopathy or hernia. MUSCULOSKELETAL: Within normal limits for patient age. CONCLUSION: 1. Nonobstructive bowel gas pattern with no inflammatory change. 2. Small bilateral pleural effusions. 3. Small amount of fluid in the pelvis. 4. Status post cholecystectomy. Brandyn Wetzel MD on January 23, 2017 at 22:45 Board Certified Radiologist. This report was verified electronically.
[2017-01-23 23:01] VITALS: BP 117/66; PULSE 72; RESP 18; O2SAT 97
[2017-01-23] MEDS: AMITRIPTYLINE HCL 25 MG TAB PO SCH (23:39)
[2017-01-24 01:16] VITALS: BP 125/65; PULSE 76; RESP 20; TEMP 97.1; O2SAT 99
[2017-01-24 03:43] VITALS: O2SAT 97
[2017-01-24 05:12] VITALS: BP 113/68; PULSE 74; RESP 18; TEMP 96.7
--- NOTE | 2017-01-24 07:08 | HHI.FF ---
Face to Face Verification Diagnosis: (1) Epistaxis (2) Atrial fibrillation (3) Hyperlipidemia (4) Hypertension (5) MRSA (methicillin resistant Staphylococcus aureus) (6) Chronic anticoagulation (7) Diabetes mellitus type 2 in obese (8) Gastrointestinal bleeding, upper (9) History of OR (myocardial infarction) (10) Symptomatic anemia (11) S/P MVR (mitral valve replacement) Physical Therapy Order: Evaluate and Treat Home Health Nursing Order: Medical education Signs/symptoms of disease process Medication education-adverse effect Nursing assessment with vital signs I have seen patient Brandyn Brian on 01/24/17. My clinical findings support the need for the requested home health care services because: Ltd mobility - disease progression Patient has SOB I certify that my clinical findings support that this patient is homebound because: Post-op weakness Unsteady gait/balance Caitlin Barron MD Jan 24, 2017 07:08
--- NOTE | 2017-01-24 07:08 | HHI.FF ---
Face to Face Verification Diagnosis: (1) Epistaxis (2) Atrial fibrillation (3) Hyperlipidemia (4) Hypertension (5) MRSA (methicillin resistant Staphylococcus aureus) (6) Chronic anticoagulation (7) Diabetes mellitus type 2 in obese (8) Gastrointestinal bleeding, upper (9) History of KS (myocardial infarction) (10) Symptomatic anemia (11) S/P MVR (mitral valve replacement) Physical Therapy Order: Evaluate and Treat Home Health Nursing Order: Medical education Signs/symptoms of disease process Medication education-adverse effect Nursing assessment with vital signs I have seen patient Brandyn Brian on 01/24/17. My clinical findings support the need for the requested home health care services because: Ltd mobility - disease progression Patient has SOB I certify that my clinical findings support that this patient is homebound because: Post-op weakness Unsteady gait/balance Caitlin Barron MD Jan 24, 2017 07:08
--- NOTE | 2017-01-24 07:08 | HHI.FF ---
Face to Face Verification Diagnosis: (1) Epistaxis (2) Atrial fibrillation (3) Hyperlipidemia (4) Hypertension (5) MRSA (methicillin resistant Staphylococcus aureus) (6) Chronic anticoagulation (7) Diabetes mellitus type 2 in obese (8) Gastrointestinal bleeding, upper (9) History of MA (myocardial infarction) (10) Symptomatic anemia (11) S/P MVR (mitral valve replacement) Physical Therapy Order: Evaluate and Treat Home Health Nursing Order: Medical education Signs/symptoms of disease process Medication education-adverse effect Nursing assessment with vital signs I have seen patient Brandyn Brian on 01/24/17. My clinical findings support the need for the requested home health care services because: Ltd mobility - disease progression Patient has SOB I certify that my clinical findings support that this patient is homebound because: Post-op weakness Unsteady gait/balance Caitlin Barron MD Jan 24, 2017 07:08
[2017-01-24 08:00] VITALS: BP 129/74; PULSE 78; RESP 18; TEMP 97; O2SAT 100
[2017-01-24] MEDS: DULoxetine HCl DR 30 MG CAP PO SCH (08:54)
[2017-01-24] MEDS: GABAPENTIN 300 MG CAP PO SCH ×2 (08:54→13:00)
[2017-01-24] MEDS: FERROUS SULFATE 325 MG (65 MG ELEMENTAL IRON) TAB PO SCH ×2 (08:54→13:30)
[2017-01-24] MEDS: MULTIVITAMIN TAB PO SCH (08:54)
[2017-01-24] MEDS: METOPROLOL TARTRATE 25 MG TAB PO SCH (08:54)
[2017-01-24] MEDS: PANTOPRAZOLE SODIUM 40 MG VIAL IV PUSH SCH (08:55)
[2017-01-24] MEDS: INSULIN ASPART SUPPLEMENTAL SCALE SQ SCH ×2 (08:59→12:00)
[2017-01-24] MEDS: DOCUSATE SODIUM 50 MG/SENNA 8.6 MG TAB PO SCH (09:00)
[2017-01-24] MEDS: SODIUM CHLORIDE 0.9% FLUSH 10 ML FLUSH IV FLUSH SCH (09:01)
[2017-01-24] MEDS ORDERED: WHEA1POW9 PO (10:33)
[2017-01-24] MEDS ORDERED: LACTCHW3 CHEW (10:33)
[2017-01-24 11:45] VITALS: O2SAT 98
[2017-01-24 12:08] VITALS: BP 116/70; PULSE 68; RESP 18; TEMP 97.9; O2SAT 99
[2017-01-24] MEDS ORDERED: PANT40TA3 PO (12:54)
== END 2017-01-24 15:08 | disposition home health service (06) | DRG 378 ==
LOC: NEPE 12:49 → NEDA 14:31 → N06B 15:55
PROVIDERS: ADMIT Hospitalist; ATTEND Hospitalist
PROC: 30233N1 Transfusion of Nonautologous Red Blood Cells into Peripheral Vein, Percutaneous Approach (ICD-10-PCS; principal; 2017-01-20)
PROC: 0DB98ZX Excision of Duodenum, Via Natural or Artificial Opening Endoscopic, Diagnostic (ICD-10-PCS; 2017-01-23)
PROC: 0DB78ZX Excision of Stomach, Pylorus, Via Natural or Artificial Opening Endoscopic, Diagnostic (ICD-10-PCS; 2017-01-23)
PROC: 0DJD8ZZ Inspection of Lower Intestinal Tract, Via Natural or Artificial Opening Endoscopic (ICD-10-PCS; 2017-01-23 17:53)
DX: K92.2 Gastrointestinal hemorrhage, unspecified (principal); D62 Acute posthemorrhagic anemia; E11.40 Type 2 diabetes mellitus with diabetic neuropathy, unspecified; I10 Essential (primary) hypertension; F41.9 Anxiety disorder, unspecified; F32.9 Major depressive disorder, single episode, unspecified; K57.30 Diverticulosis of large intestine without perforation or abscess without bleeding; K64.8 Other hemorrhoids; K64.4 Residual hemorrhoidal skin tags; K44.9 Diaphragmatic hernia without obstruction or gangrene; K29.70 Gastritis, unspecified, without bleeding; E66.9 Obesity, unspecified; E78.00 Pure hypercholesterolemia, unspecified; H54.7 Unspecified visual loss; Z86.73 Personal history of transient ischemic attack (TIA), and cerebral infarction without residual deficits; Z79.4 Long term (current) use of insulin; Z86.14 Personal history of Methicillin resistant Staphylococcus aureus infection; I25.2 Old myocardial infarction; Z95.3 Presence of xenogenic heart valve; Z79.01 Long term (current) use of anticoagulants
CPT/HCPCS: 36430; 71010; 74176; 80053; 81001; 82550; 82948; 83036; 83735; 83880; 84100; 84439; 84443; 84484; 85014; 85018; 85025; 85610; 85730; 86850; 86900; 86901; 86920; 88305; 88312; 93005; C9113; J1815; J1940; J2354; J2405; J7030; J7040; J7050; P9016; Q9963

== ENCOUNTER 2017-03-25 13:52 | Emergency (ER) | payer MEDICARE, OTHER ==
[~2017-03-25] VITALS: Ht 188 cm; Wt 107.0 kg
[~2017-03-25 13:52] MED LIST changes: +ASCO100037; -ATEN1TAB73 PO; +FERR325C PO; +HUMULIN R SQ; +LACTCHW3 CHEW; -METF1000 PO; +METO25TA3 PO; +PANT40TA3 PO; +WHEA1POW9 PO
[2017-03-25 13:57] VITALS: BP 139/81; PULSE 77; RESP 18
[2017-03-25 14:02] VITALS: BP 139/81; PULSE 99; RESP 18; O2SAT 99
[2017-03-25] MEDS ORDERED: SODIUM CHLORIDE 0.9% FLUSH 10 ML FLUSH IVF PRN (14:15)
[2017-03-25] MEDS ORDERED: FERR325T18 PO (14:15)
[2017-03-25] MEDS ORDERED: SODIUM CHLORID 0.9% 500 ML INJ 500 ML IV ONE (14:15)
--- NOTE | 2017-03-25 14:23 | PD ---
HPI Chief Complaint: General Weakness Time Seen by Provider: 13:57 Travel History International Travel<30 days: No Contact w/Intl Traveler<30days: No Traveled to known affect area: No History of Present Illness HPI The patient is a 77-year-old male who presents to the emergency department via EMS after he experienced an episode of weakness at [facility]. The patient states he was walking, holding onto the shopping cart, when he suddenly became dizzy. The patient states the dizziness was different than the dizziness he has experienced with hypoglycemia. The patient felt like he was leaning left and was going to fall to the left. The patient did not fall to the left, his helped him sit down and then lie on the floor. EMS arrived and noted the patient's blood sugar was 146. The patient denied any diaphoresis , nausea, vomiting, chest pain, shortness of breath, or palpitations. The patient states his symptoms have resolved he just feels "tired" from the neck. The patient does have a history of previous CVA and was on blood thinners, however, was taken off of blood thinners last month after he experienced a GI bleed and required transfusion. He denies any acute weakness of the upper or lower extremities, does note chronic bilateral lower extremity foot drop with decreased sensation which is chronic. He denies any acute changes to lower extremities or upper extremities. He denies any dysarthria. PFSH Past Medical History Anemia: Yes Atrial Fibrillation: Yes Heart Rhythm Problems: Yes (SVT/ATRIAL FIB X 1 EPISODE) Cardiovascular Problems: Yes (MRSA in heart, valve RP) High Cholesterol: Yes Cerebrovascular Accident: Yes Diabetes: Yes Patient Takes Glucophage: No Diminished Hearing: No Hypertension: Yes Kidney Stones: Yes Neurologic: Yes (DIABETIC NEUROPATHY) Past Surgical History Abdominal Surgery: Yes (cholecystectomy) Cardiac Surgery: Yes (MVR ) Cholecystectomy: Yes (1982) Eye Surgery: Yes Neurologic Surgery: Yes (LAMINECTOMY X2) Other Surgery: Yes (LEFT THUMB/INFECTION/HAND SURGERY) Social History Alcohol Use: No Tobacco Use: No Substance Use: No Allergies-Medications (Allergen,Severity, Reaction): Coded Allergies: tetanus toxoid, adsorbed (Unverified Allergy, Severe, SEVERE SWELLING, TOLD NEVER TO HAVE INJECTION AGAIN, 03/25/17) Uncoded Allergies: rubber (Allergy, Severe, unknown, 05/29/12) Reported Meds & Prescriptions Reported Meds & Active Scripts Active Pantoprazole (Pantoprazole Sodium) 40 Mg Tab 40 Mg PO DAILY Benefiber (Wheat Dextrin) 3 Gram/3.8 Gram Powder 1 Can PO BID NEB 30 Days Reported Ferrous Sulfate 325 Mg (65 Mg Iron) Tablet 325 Mg PO TIDPC [Humulin R ] SQ DIRECTED Metoprolol Tartrate 25 Mg Tab 25 Mg PO DAILY Cymbalta DR (Duloxetine HCl) 30 Mg Capdr 30 Mg PO DAILY Gabapentin 300 Mg Cap 300 Mg PO TID Zocor (Simvastatin) 20 Mg Tab 20 Mg PO HS Multiple Vitamin 1 Tab 1 Tab PO DAILY Humulin N Inj (Insulin Human NPH) 1,000 Unit/10 Ml Vial SQ BID PER SLIDING SCALE Amitriptyline (Amitriptyline HCl) 25 Mg Tab 25 Mg PO HS Review of Systems Except as stated in HPI: all other systems reviewed are Neg General / Constitutional: No: Fever HENT: Positive: Lightheadedness Cardiovascular: Positive: Syncope (near syncope), No: Chest Pain or Discomfort , Palpitations, Irregular Rhythm, Tachycardia, Diaphoresis, Dyspnea on exertion Respiratory: No: Shortness of Breath Gastrointestinal: No: Nausea, Vomiting, Abdominal Pain Musculoskeletal: Positive: Weakness Neurologic: Positive: Weakness, Dizziness, No: Focal Abnormalities, Headache, Change in Mentation, Slurred Speech, Paresthesia, Sensory Disturbance Physical Exam Narrative GENERAL: Awake, alert, nontoxic-appearing 77-year-old male who appears his stated age and is in no acute respiratory distress. SKIN: Focused skin assessment warm/dry. HEAD: Atraumatic. Normocephalic. EYES: Pupils equal and round. Patient is able to see my hand in front of his face and the left upper lateral quadrants, has difficulty tracking, but EOMs are intact. ENT: No nasal bleeding or discharge. Mucous membranes pink and moist. NECK: Trachea midline. No JVD. CARDIOVASCULAR: Regular rate and rhythm. Holosystolic murmur. RESPIRATORY: No accessory muscle use. Clear to auscultation. Breath sounds equal bilaterally. GASTROINTESTINAL: Abdomen soft, non-tender, nondistended. Hepatic and splenic margins not palpable. MUSCULOSKELETAL: No obvious deformities. No clubbing. No cyanosis. No edema. Lower extremities are in braces for foot drop. NEUROLOGICAL: Awake and alert. No obvious cranial nerve deficits. Motor grossly within normal limits. Normal speech. No drift of the upper or lower extremities. Diminished sensation to soft touch lower extremities bilaterally. Sensation symmetric on the arms and face. No dysarthria noted. Patient does have visual field deficits, chronic per patient. PSYCHIATRIC: Appropriate mood and affect; insight and judgment normal. Data Data Last Documented VS Vital Signs Date Time Temp Pulse Resp B/P (MAP) Pulse Ox O2 Delivery O2 Flow Rate FiO2 03/25/17 14:24 66 139/81 (100) 03/25/17 14:02 18 99 Room Air Orders Orders Electrocardiogram (03/25/17 14:10) Complete Blood Count With Diff (03/25/17 14:10) Comprehensive Metabolic Panel (03/25/17 14:10) Magnesium (Mg) (03/25/17 14:10) Ckmb (Isoenzyme) Profile (03/25/17 14:10) Troponin I (03/25/17 14:10) Urinalysis - C+S If Indicated (03/25/17 14:10) Ct Brain W/O Iv Contrast(Rout) (03/25/17 14:10) Ecg Monitoring (03/25/17 14:10) Iv Access Insert/Monitor (03/25/17 14:10) Oximetry (03/25/17 14:10) Sodium Chloride 0.9% Flush (Ns Flush) (03/25/17 14:15) Sodium Chlorid 0.9% 500 Ml Inj (Ns 500 M (03/25/17 14:15) Labs Laboratory Tests Test 03/25/17 14:17 03/25/17 16:25 White Blood Count 5.1 TH/MM3 Red Blood Count 3.96 MIL/MM3 Hemoglobin 11.9 GM/DL Hematocrit 34.9 % Mean Corpuscular Volume 88.0 FL Mean Corpuscular Hemoglobin 30.0 PG Mean Corpuscular Hemoglobin Concent 34.1 % Red Cell Distribution Width 14.7 % Platelet Count 153 TH/MM3 Mean Platelet Volume 7.4 FL Neutrophils (%) (Auto) 52.0 % Lymphocytes (%) (Auto) 33.6 % Monocytes (%) (Auto) 6.9 % Eosinophils (%) (Auto) 6.1 % Basophils (%) (Auto) 1.4 % Neutrophils # (Auto) 2.7 TH/MM3 Lymphocytes # (Auto) 1.7 TH/MM3 Monocytes # (Auto) 0.4 TH/MM3 Eosinophils # (Auto) 0.3 TH/MM3 Basophils # (Auto) 0.1 TH/MM3 CBC Comment DIFF FINAL Differential Comment Blood Urea Nitrogen 22 MG/DL Creatinine 1.34 MG/DL Random Glucose 170 MG/DL Total Protein 7.6 GM/DL Albumin 3.5 GM/DL Calcium Level 8.7 MG/DL Magnesium Level 1.6 MG/DL Alkaline Phosphatase 72 U/L Aspartate Amino Transf (AST/SGOT) 16 U/L Alanine Aminotransferase (ALT/SGPT) 16 U/L Total Bilirubin 0.4 MG/DL Sodium Level 140 MEQ/L Potassium Level 4.3 MEQ/L Chloride Level 105 MEQ/L Carbon Dioxide Level 27.4 MEQ/L Anion Gap 8 MEQ/L Estimat Glomerular Filtration Rate 52 ML/MIN Total Creatine Kinase 95 U/L Troponin I LESS THAN 0.02 NG/ML Urine Color LIGHT-YELLOW Urine Turbidity CLEAR Urine pH 5.5 Urine Specific Coral 1.007 Urine Protein NEG mg/dL Urine Glucose (UA) NEG mg/dL Urine Ketones NEG mg/dL Urine Occult Blood NEG Urine Nitrite NEG Urine Bilirubin NEG Urine Urobilinogen LESS THAN 2.0 MG/DL Urine Leukocyte Esterase NEG Urine RBC 1 /hpf Urine WBC LESS THAN 1 /hpf Microscopic Urinalysis Comment CULT NOT INDICATED MDM Medical Decision Making Medical Screen Exam Complete: Yes Emergency Medical Condition: Yes Medical Record Reviewed: Yes Interpretation(s) EKG reveals sinus arrhythmia. Left anterior fascicular block. Last Impressions Head CT 03/25/17 1410 Signed Impressions: Service Date/Time: Saturday, March 25, 2017 15:09 - CONCLUSION: Slight atrophic and small vessel ischemic changes without any evidence for acute hemorrhage or mass effect. Jace Lopez MD Laboratory Tests Test 03/25/17 14:17 03/25/17 16:25 White Blood Count 5.1 TH/MM3 Red Blood Count 3.96 MIL/MM3 Hemoglobin 11.9 GM/DL Hematocrit 34.9 % Mean Corpuscular Volume 88.0 FL Mean Corpuscular Hemoglobin 30.0 PG Mean Corpuscular Hemoglobin Concent 34.1 % Red Cell Distribution Width 14.7 % Platelet Count 153 TH/MM3 Mean Platelet Volume 7.4 FL Neutrophils (%) (Auto) 52.0 % Lymphocytes (%) (Auto) 33.6 % Monocytes (%) (Auto) 6.9 % Eosinophils (%) (Auto) 6.1 % Basophils (%) (Auto) 1.4 % Neutrophils # (Auto) 2.7 TH/MM3 Lymphocytes # (Auto) 1.7 TH/MM3 Monocytes # (Auto) 0.4 TH/MM3 Eosinophils # (Auto) 0.3 TH/MM3 Basophils # (Auto) 0.1 TH/MM3 CBC Comment DIFF FINAL Differential Comment Blood Urea Nitrogen 22 MG/DL Creatinine 1.34 MG/DL Random Glucose 170 MG/DL Total Protein 7.6 GM/DL Albumin 3.5 GM/DL Calcium Level 8.7 MG/DL Magnesium Level 1.6 MG/DL Alkaline Phosphatase 72 U/L Aspartate Amino Transf (AST/SGOT) 16 U/L Alanine Aminotransferase (ALT/SGPT) 16 U/L Total Bilirubin 0.4 MG/DL Sodium Level 140 MEQ/L Potassium Level 4.3 MEQ/L Chloride Level 105 MEQ/L Carbon Dioxide Level 27.4 MEQ/L Anion Gap 8 MEQ/L Estimat Glomerular Filtration Rate 52 ML/MIN Total Creatine Kinase 95 U/L Troponin I LESS THAN 0.02 NG/ML Urine Color LIGHT-YELLOW Urine Turbidity CLEAR Urine pH 5.5 Urine Specific Coral 1.007 Urine Protein NEG mg/dL Urine Glucose (UA) NEG mg/dL Urine Ketones NEG mg/dL Urine Occult Blood NEG Urine Nitrite NEG Urine Bilirubin NEG Urine Urobilinogen LESS THAN 2.0 MG/DL Urine Leukocyte Esterase NEG Urine RBC 1 /hpf Urine WBC LESS THAN 1 /hpf Microscopic Urinalysis Comment CULT NOT INDICATED Differential Diagnosis Differential diagnosis includes CVA, intracranial hemorrhage, hyponatremia, hypoglycemia, dehydration, orthostatic hypotension, vertigo, near syncope, arrhythmia. Narrative Course IV was established, labs are drawn and sent, and the patient was placed on cardiac telemetry monitoring and continuous pulse oximetry monitoring. EKG was ordered and interpreted. CT of the brain was obtained. Accu-Chek prior to arrival according to EMS was 146. The patient was administered 500 cc of normal saline. CT reveals chronic changes, no acute findings. Sodium is normal. Hemoglobin has improved to 11.9. UA is unremarkable. The patient is now asymptomatic. I do discussion with the patient regarding observation versus discharge home, the patient would prefer to be discharged home. The patient be discharged home with his . Diagnosis Primary Impression: Generalized weakness Patient Instructions: General Instructions Additional Instructions: Please provide the patient a copy of his lab results and CT results at discharge. Follow-up with your primary physician. Return if symptoms worsen or progress. Med/Other Pt SpecificInfo: No Change to Meds Disposition: 01 DISCHARGE HOME Condition: Stable Kei Mojica MD Mar 25, 2017 14:23
[2017-03-25 14:24] VITALS: BP 139/81; PULSE 66
[2017-03-25 14:41] LABS: AUTOMATED NEUTROPHIL # 2.7 TH/MM3 (1.8-7.7); BASOPHIL # 0.1 TH/MM3 (0-0.2); BASOPHIL % 1.4 % (0.0-2.0); EOSINOPHIL # 0.3 TH/MM3 (0-0.4); EOSINOPHIL % 6.1 % (0.0-4.0); HEMATOCRIT 34.9 % (39.0-51.0); HEMOGLOBIN 11.9 GM/DL (13.0-17.0); LYMPH % 33.6 % (9.0-44.0); LYMPHOCYTE # 1.7 TH/MM3 (1.0-4.8); MEAN CORPUSCULAR HGB CONC 34.1 % (32.0-36.0); MEAN PLATELET VOLUME 7.4 FL (7.0-11.0); MONO % 6.9 % (0.0-8.0); MONOCYTE # 0.4 TH/MM3 (0-0.9); PLATELET COUNT 153 TH/MM3 (150-450); RED BLOOD COUNT 3.96 MIL/MM3 (4.50-5.90); RED CELL DISTRIBUTION WIDTH 14.7 % (11.6-17.2); WHITE BLOOD COUNT 5.1 TH/MM3 (4.0-11.0)
[2017-03-25 15:05] LABS: ALBUMIN 3.5 GM/DL (3.4-5.0); AST (GOT) 16 U/L (15-37); BICARBONATE 27.4 MEQ/L (21.0-32.0); BLOOD UREA NITROGEN 22 MG/DL (7-18); CALCIUM 8.7 MG/DL (8.5-10.1); CHLORIDE 105 MEQ/L (98-107); CREATININE 1.34 MG/DL (0.60-1.30); GLOMERULAR FILTRATION RATE 52 ML/MIN (>89); GLUCOSE,RANDOM 170 MG/DL (74-106); MAGNESIUM 1.6 MG/DL (1.5-2.5); SODIUM (NA) 140 MEQ/L (136-145)
[2017-03-25 15:10] LABS: ALKALINE PHOSPHATASE 72 U/L (45-117); ALT (GPT) 16 U/L (12-78); TOTAL BILIRUBIN ADULT 0.4 MG/DL (0.2-1.0); TOTAL PROTEIN 7.6 GM/DL (6.4-8.2); TROPONIN I LESS THAN 0.02 NG/ML (0.02-0.05)
--- NOTE | 2017-03-25 15:48 | RADRPT ---
EXAM DATE/TIME: 03/25/2017 15:09 [facility] COMPARISON: CT BRAIN W/O CONTRAST, August 29, 2015, 17:27. INDICATIONS : Dizziness and left sided weakness today. RADIATION DOSE: 42.08 CTDIvol (mGy) MEDICAL HISTORY : Stroke. diabetes SURGICAL HISTORY : Cholecystectomy. ENCOUNTER: Initial ACUITY: 1 day PAIN SCALE: 0/10 LOCATION: Bilateral head TECHNIQUE: Multiple contiguous axial images were obtained of the head. Using automated exposure control and adj ustment of the mA and/or kV according to patient size, radiation dose was kept as low as reasonably a chievable to obtain optimal diagnostic quality images. DICOM format image data is available electro nically for review and comparison. FINDINGS: There is no evidence for intracranial hemorrhage, mass effect, mass lesions, or edema. The visualize d bony structures appear intact. Slight degree of brain atrophy is seen. Slight periventricular whit e matter changes are seen nonspecific mostly consistent with chronic small vessel ischemic changes. There are no signs of acute infarction for technique. CONCLUSION: Slight atrophic and small vessel ischemic changes without any evidence for acute hemorrhage or mass effect. Jace Lopez MD on March 25, 2017 at 15:45 Board Certified Radiologist. This report was verified electronically.
[2017-03-25 16:48] LABS: BILIRUBIN, URINE NEG (NEG); BLOOD, URINE NEG (NEG); GLUCOSE,URINE NEG (NEG); KETONE, URINE NEG (NEG); NITRITE,URINE NEG (NEG); PH, URINE 5.5 (5.0-8.5); URINE COLOR LIGHT-YELLOW (YELLW/STRAW); URINE LEUKOCYTE ESTERASE NEG (NEG)
--- NOTE | 2017-03-25 22:07 | EKG ---
Date Performed: 03/25/2017 Time Performed: 14:10:34 PTAGE: 77 years EKG: NORMAL Sinus rhythm PATTERN CONSISTENT WITH PULMONARY DISEASE LEFT ANTERIOR FASCICULAR BLOCK ABNORMAL ECG PREVIOUS TRACING : 01/23/2017 05.57 Compared to prior tracing no significant change DOCTOR: New Murphy Interpretating Date/Time 03/25/2017 22:05:52
== END 2017-03-25 17:37 | disposition home or self-care (01) ==
LOC: NEPE 13:52
DX: R53.1 Weakness (principal); E11.40 Type 2 diabetes mellitus with diabetic neuropathy, unspecified; E78.00 Pure hypercholesterolemia, unspecified; I10 Essential (primary) hypertension; R94.31 Abnormal electrocardiogram [ECG] [EKG]; Z79.4 Long term (current) use of insulin
CPT/HCPCS: 70450; 80053; 81001; 82550; 83735; 84484; 85025; 93005; 96360; 99285; J7040